=== PATIENT | male | born 2000 | race Caucasian/White ===

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

== ENCOUNTER 2020-03-03 17:05 | Emergency (ER) | payer BC, SELFPAY ==
[2020-03-03 17:10] VITALS: BP 151/87; PULSE 87; RESP 20; TEMP 37.4; O2SAT 98
--- NOTE | 2020-03-03 17:28 | ED.GENADUL_ITS ---
Discharge Plan Disposition Patient Disposition: HOME Condition: Good Discharge Details Clinical Impression: Pain of right forearm Primary Care Provider: Reji Greene ED Provider: Danna Orozco Home Meds and New Rx's Prescriptions: Continued fluticasone propionate [Flonase Allergy Relief] 50 mcg/actuation spray,suspension 1 spray TISH DAILY PRNRF: 0 Discharge Instructions Instructions: Arm Pain (ED) Additional Instructions: Encourage rest, ice, elevation. Tylenol and/or ibuprofen as needed for discomfort. Please continue with brace while pain persists. If you develop i ncreased pain, fever/chills, no change in the skin, or other new/worsening symptoms to seek care urgently once again. Otherwise, please follow-up with primary care in 2 weeks for reevaluation. Referrals: Reji Greene MD [Primary Care Provider] - Discharge Data Discharge Date/Time-TO BE ENTERED AT DEPARTURE: 03/03/20 18:32 Medical Decision Making Patient is a pleasant [id number] 19-year-old male presenting today with chief complaint of right forearm. He states that a week and half ago he tripped and landed on a bump on the ground with his right forearm. Since that time, he has been having pain over the midshaft ulna. No numbness or tingling. Denies other injury at the time of the incident. This has not impeded him from working. He does state that [place] increases discomfort. On exam, I see no evidence of neurological or vascular deficiency. He has good range of motion of his wrist, fingers. Forage motion of the elbow. He does have some discomfort elicited with supination pronation against resistance. Extension of the wrist also causes increased discomfort in the forearm. No pain over the medial or lateral epicondyles. No pain over the olecranon. He is able to extend and flex against resistance. Plan for imaging of the patient self, potential for fracture. FINDINGS: Bones/joints: There is no evidence of acute fracture.There is no evidence of malalignment or dislocation. Soft tissues: Normal. IMPRESSION: There is no evidence of acute fracture.There is no evidence of malalignment or dislocation. 150 findings with the patient. The area of tenderness has been questioning if this could be either contusion versus a tendinitis. I encouraged rest, ice, elevation. Advised Tylenol and/or ibuprofen as needed for discomfort. As the pain is so much and worse with supination, pronation as well as extension of the wrist, and use of the brace of the wrist may help with his discomfort. I advise follow-up with primary care in 2 weeks for reevaluation if pain is not completely subsided. Return precautions were given. All questions and concerns were addressed and he is in agreement with this plan. HPI General Mode of arrival: ambulatory . Date/Time Provider Initiated Documentation: 03/03/20 17:28 . Limitations to Documentation: no limitations . Information obtained by: patient and RN notes reviewed . History of Present Illness 19 year old M presents to the emergency department with the chief complaint of right forearm pain, described as moderate, with intensity rated at 5. Quality is described as aching, and is localized to the right and upper extremity. Patient reports no radiation. Patient started experiencing this week(s) (1.5) and it has been constant. Immobilization improves symptom(s), Movement worsens symptoms . Patient notes no other symptoms.. Patient did receive the following treatments prior to arrival, none Related Data Home Medications Medication Instructions Recorded Confirmed fluticasone propionate [Flonase 1 spray TISH DAILY PRN 03/03/20 03/03/20 Allergy Relief] Allergies Allergy/AdvReac Type Severity Reaction Status Date / Time No Known Allergies Allergy Verified 03/03/20 17:12 General Stated Complaint: Orthopedic MILADYS: 4 Review of Systems Constitutional Constitutional: Reports as per HPI, Denies chills, Denies fever(s), Denies headache(s) and Denies weakness ENT Ears, Nose, Mouth, and Throat: Denies headache(s) Cardiovascular Cardiovascular: Reports as per HPI Respiratory Respiratory: Reports as per HPI and Denies cough Musculoskeletal Musculoskeletal: Reports as per HPI and Denies tingling Integumentary/Breasts Skin/Breast: Reports as per HPI, Denies rash and Denies wounds Neurologic Neurologic: Reports as per HPI, Denies headache(s), Denies tingling, Denies paresthesias and Denies weakness [facility] Medical History Chlamydia contact, treated 04/10/19. 1gm Azithromycin. Surgical History Circumcision Family History Father Asthma Other Diabetes PGM Heart disease maternal, PGM, MGF of CHF Myocardial infarction maternal, PGM, Stroke maternal Asthma PGM Social History Smoking/Tobacco Use Status: Current every day Tobacco Type: smokeless tobacco Second Hand Exposure: No Smoking risk assessment performed?: Yes Alcohol Intake: never Drug use: Never Substance use type: does not use Details: smokeless tobacco 11/19/2019 Household members: family and other Details: DAD AND SIBLINGS Pets and animals: Yes Pets and animals: dog(s) Do you feel safe at home: Yes Do you feel safe in your relationship?: Yes Exam Const General: cooperative, healthy appearing, comfortable, no acute distress, well developed and well groomed Nutritional Appearance: average body habitus and well nourished Orientation: alert and awake Resp Effort & Inspection: normal respiratory effort, able to speak in complete sentences and no respiratory distress Cardio Rate: regular rate Rhythm: regular rhythm Skin General skin exam: no rashes or lesions noted Lesions: no lesions Rashes: no rashes Trauma: no lacerations or abrasions Neuro General: patient alert and patient awake Cognition: normal cognition Speech: speech normal Gait: normal gait Motor: muscle tone normal throughout Sensory Exam: no sensory deficits noted Extrem Elbow/forearm/wrist images: 1. area of tenderness. Patient is full range of motion. Neurovascularly intact. 2+ distal pulses. Point tender over the midshaft ulna. No pain over the lateral epicondyles. He does have pain with both supination and pronation against resistance. Psych Appearance: grossly normal and well kempt Mental Status: mental status grossly normal Speech and Movement: speech and movement normal Course Vital Signs Vital signs: Vital Signs Temperature 37.4 C 03/03/20 17:10 Pulse 87 03/03/20 17:10 Respiratory Rate 20 03/03/20 17:10 Blood Pressure 151/87 H 03/03/20 17:10 Pulse Oximetry 98 03/03/20 17:10 Temperature 37.4 C 03/03/20 17:10 Temperature Source Skin 03/03/20 17:10 Pulse 87 03/03/20 17:10 Respiratory Rate 20 03/03/20 17:10 Respiratory Effort Non-Labored 03/03/20 17:13 Blood Pressure 151/87 H 03/03/20 17:10 Blood Pressure Position Sitting 03/03/20 17:10 Pulse Oximetry 98 03/03/20 17:10 Oxygen Delivery Method Room Air 03/03/20 17:10 Oxygen Flow Rate 0 03/03/20 17:10 Pain Level 5 03/03/20 17:10
--- NOTE | 2020-03-03 17:30 | DI.RAD_ITS ---
EXAM: XR FOREARM RT CLINICAL HISTORY: fall onto midshaft ulna 1wk ago. TECHNIQUE: 2D digital imaging was performed. COMPARISON: No exams were available for comparison FINDINGS: BONES: No acute fracture is present. No bony destructive lesion is seen. Visualized portion of elbow and wrist joints are unremarkable. SOFT TISSUE: Normal. IMPRESSION: Unremarkable radiographs of the left forearm. DATA REPOSITORY: RADIATION DOSE DELIVERED:
--- NOTE | 2020-03-03 18:11 | DI.VRAD_ITS ---
PROCEDURE INFORMATION: Exam: XR Right Forearm Exam date and time: 03/03/2020 5:37 PM Age: 19 years old Clinical indication: Pain; Lower or forearm; Right TECHNIQUE: Imaging protocol: XR Right forearm. Views: 2 views. COMPARISON: No relevant prior studies available. FINDINGS: Bones/joints: There is no evidence of acute fracture.There is no evidence of malalignment or dislocation. Soft tissues: Normal. IMPRESSION: There is no evidence of acute fracture.There is no evidence of malalignment or dislocation. Dictated and Authenticated by: Joan Paez MD. Ordering:AILYN Clay MD
== END 2020-03-03 18:32 | disposition home or self-care (01) ==
PROVIDERS: Emergency Provider Physician Assistant; PCP Pediatrics
DX: M79.631 Pain in right forearm (principal); W19.XXXA Unspecified fall, initial encounter
CPT/HCPCS: 99283; 73090; 99284

== ENCOUNTER 2020-03-19 18:43 | Outpatient (CLI) | payer BC, SELFPAY ==
--- NOTE | 2020-03-19 14:00 | DI.CT_ITS ---
EXAM: CT ORBITS WO CLINICAL HISTORY: FOREIGN BODY UNDER EYELID,H02.819. TECHNIQUE: Imaging Protocol: Axial computed tomography images with coronal and sagittal reformatted images were created and reviewed CONTRAST MATERIAL: Noncontrast COMPARISON: No exams were available for comparison FINDINGS: Globes: The anterior and posterior chambers are intact. Optic Nerves: Normal. Extraocular muscles: Normal. Retrobulbar fat: Normal. Orbital astorga: No definite fracture is noted. Sinuses: Mild mucosal thickening of maxillary sinuses. Mucosal thickening and opacification of multi ple ethmoid sinuses. Mastoid air cells clear. Soft Tissues: Normal. No foreign body is identified. The visualized portions of the brain are unrem arkable. IMPRESSION: Normal CT scan of the orbits. Incidental chronic sinus disease. RADIATION DOSE DELIVERED: 260.69mGy.cm Total DLP DATA REPOSITORY: All CT scans at this facility are submitted to the National Radiology Data Registry (NRDR) Dose Index Registry (DIR) with the [employer] (ACR). RADIATION OPTIMIZATION: All CT scans at this facility use at least one of these dose optimization te chniques: automated exposure control; mA and/or kV adjustment per patient size (includes targeted exa ms where dose is matched to clinical indication); or iterative reconstruction.
== END 2020-03-19 19:03 ==
PROVIDERS: PCP Pediatrics; Visit Provider Family Medicine
DX: H02.819 Retained foreign body in unspecified eye, unspecified eyelid (principal)
CPT/HCPCS: 70480

== ENCOUNTER 2020-03-27 07:24 | Emergency (ER) | payer BC, SELFPAY ==
[2020-03-27 07:28] VITALS: BP 126/79; PULSE 92; TEMP 36.7; O2SAT 99
--- NOTE | 2020-03-27 07:34 | W.ED.GENAD ---
Discharge Plan Disposition Patient Disposition: HOME Condition: Good Discharge Details Clinical Impression: Cellulitis of left lower leg Primary Care Provider: Reji Greene ED Provider: Provider,Temporary Home Meds and New Rx's Prescriptions: New clindamycin HCl 150 mg capsule 450 mg PO TID 7 Days Qty: 63 RF: 0 Continued fluticasone propionate [Flonase Allergy Relief] 50 mcg/actuation spray,suspension 1 spray TISH DAILY PRNRF: 0 Discharge Instructions Instructions: Cellulitis (ED) Additional Instructions: At this time you have a bacterial infection of your skin behind your left knee. Currently there is no abscess, however if you notice increased swelling, redness, or pain this may indicate an abscess. If this is noted please return immediately for reassessment as you may need to have this drained. Please take the antibiotic as directed, make sure you are taking it with a yogurt with live culture like activia to prevent any diarrhea. If you notice any worsening of your symptoms, or any new symptoms such as vomiting, diarrhea, fever, chills, shortness of breath, chest pain, numbness, weakness, or fainting , please return immediately to the emergency department for reevaluation. Please follow up with your primary care provider as soon as possible for reassessment and reevaluation. As always, it was a pleasure participating in your medical care today. Stand Alone Forms: Work Release Referrals: Reji Greene MD [Primary Care Provider] - Medical Decision Making 19-year-old male presents with pain behind his left knee for the last 2 to 3 days. He noticed a small lesion there there so ago, it is gotten slightly more swollen, red and painful over the last 24 to 48 hours. He does note that the lesion was draining earlier. He denies any IV or illicit drug use, trauma, interaction with a significant amount of jacquie to suggest anthrax encounter. He denies any systemic symptoms of fever or chills. He denies any issues like this in the past. No pain in the bony joint of the knee itself. No other complaints this time. Physical exam demonstrates a small cellulitic lesion in the posterior left knee superficially on the skin, it is mildly firm and indurated with mild erythema and warmth, no circumferential spreading of the redness, area is notably localized to an area of 1 x 3 cm. No active draining, bedside ultrasound shows no fluid collection that can be drained. There is no pain with movement of the knee joint itself, he has no IV or illicit drug use history, no clinical evidence at this time of a septic joint or an infected joint for that matter. No calf tenderness. No systemic symptoms. Patient will be given clindamycin, recommendations for yogurt with live culture to prevent diarrhea, discussed red flags which to return, including clinical evidence that would represent an abscess that needs drainage if this occurs later. I have extensively reviewed the treatment plan and discharge instructions with the patient. I have addressed all patient concerns at this time. The patient was made aware of what symptoms to monitor for that would warrant a return to the emergency department. Discussed the plan with the patient, they demonstrate verbal understanding and agreement with our assessment and plan at this time. The documentation in this chart was dictated using [employer] dictation software. Please excuse any dictation errors. HPI General Date/Time Provider Initiated Documentation: 03/27/20 07:27. HPI Narrative: 19-year-old male presents with pain behind his left knee for the last 2 to 3 days. He noticed a small lesion there there so ago, it is gotten slightly more swollen, red and painful over the last 24 to 48 hours. He does note that the lesion was draining earlier. He denies any IV or illicit drug use, trauma, interaction with a significant amount of jacquie to suggest anthrax encounter. He denies any systemic symptoms of fever or chills. He denies any issues like this in the past. No pain in the bony joint of the knee itself. No other complaints this time. Related Data Home Medications Medication Instructions Recorded Confirmed fluticasone propionate [Flonase 1 spray TISH DAILY PRN 03/03/20 03/27/20 Allergy Relief] clindamycin HCl 450 mg PO TID 7 Days #63 cap 03/27/20 Previous Rx's Medication Instructions Recorded clindamycin HCl 450 mg PO TID 7 Days #63 cap 03/27/20 Allergies Allergy/AdvReac Type Severity Reaction Status Date / Time No Known Allergies Allergy Verified 03/27/20 07:37 General Stated Complaint: Cellulitis MILADYS: 4 Review of Systems All systems reviewed & are unremarkable except as noted in HPI and below [facility] Medical History Chlamydia contact, treated 2/18/20. 1gm Azithromycin. Surgical History Circumcision Family History Father Asthma Other Diabetes PGM Heart disease maternal, PGM, MGF of CHF Myocardial infarction maternal, PGM, Stroke maternal Asthma PGM Social History Smoking/Tobacco Use Status: Current every day Tobacco Type: smokeless tobacco Second Hand Exposure: No Smoking risk assessment performed?: Yes Alcohol Intake: never Drug use: Never Substance use type: does not use Details: smokeless tobacco 11/19/2019 Household members: family and other Details: DAD AND SIBLINGS Pets and animals: Yes Pets and animals: dog(s) Do you feel safe at home: Yes Do you feel safe in your relationship?: Yes Exam Narrative Exam Narrative: 1.Const: Well-nourished, Well-developed, appearing stated age 2.Eyes: PERRL, no conjunctival injection, and symmetrical lids. 3.ENT: Atraumatic external nose and ears. Moist MM. Neck: Symmetric, trachea midline, No thyromegaly. 4.CVS: +S1/S2, No murmurs or gallops. Peripheral pulses 2+ and equal in all extremities. Brisk capillary refill in all extremities. 5.RESP: Unlabored respiratory effort. Clear to auscultation bilaterally. No wheezes rales or rhonchi 6.GI: Soft, Nontender/Nondistended, No hepatosplenomegaly. No guarding or rebound. 7.MSK: Normocephalic/Atraumatic, Extremities w/o deformity or ttp No cyanosis or clubbing, Normal movement of all extremities. Patient is able to move the knee without any difficulty. No indication of a septic joint. No calf tenderness. 8.Skin: Warm, Dry. Left posterior knee demonstrates a 2 cm x 1 cm erythematous lesion that is mildly firm and indurated, also warm, but no fluctuance. There appears to be an eschar on it from where perhaps the head was previously scraped/deroofed, with some previous drainage but no drainage now. Bedside ultrasound shows no evidence of significant fluid collection requiring draining. No pain in the knee itself, no circumferential redness. No significant calf tenderness. No evidence of significant spreading of cellulitis. 9.Neuro: potato inspector II-XII grossly intact. Sensation grossly intact, no focal neurologic deficits. 10.Psych: (AAO) x3. Appropriate mood and affect Course Vital Signs Vital signs: Vital Signs Temperature 36.7 C 03/27/20 07:28 Pulse 92 H 03/27/20 07:28 Blood Pressure 126/79 03/27/20 07:28 Pulse Oximetry 99 03/27/20 07:28 Temperature 36.7 C 03/27/20 07:28 Temperature Source Temporal Artery Scan 03/27/20 07:28 Pulse 92 H 03/27/20 07:28 Respiratory Effort Non-Labored 03/27/20 07:32 Blood Pressure 126/79 03/27/20 07:28 Blood Pressure Position Sitting 03/27/20 07:28 Pulse Oximetry 99 03/27/20 07:28 Oxygen Delivery Method Room Air 03/27/20 07:28 Oxygen Flow Rate 0 03/27/20 07:28 Pain Level 7 03/27/20 07:28
== END 2020-03-27 07:42 | disposition home or self-care (01) ==
PROVIDERS: Emergency Provider Student in an Organized Health Care Education/Training Program; PCP Pediatrics
DX: L03.116 Cellulitis of left lower limb (principal)
CPT/HCPCS: 99283

== ENCOUNTER 2020-03-29 11:24 | Emergency (ER) | payer BC, SELFPAY ==
[2020-03-29 11:30] VITALS: BP 121/83; PULSE 92; RESP 16; TEMP 36.8; O2SAT 99
--- NOTE | 2020-03-29 12:08 | ED.GENADUL_ITS ---
Discharge Plan Disposition Patient Disposition: HOME Discharge Details Clinical Impression: Abscess of left leg Primary Care Provider: Reji Greene ED Provider: Patricia Hodgson Home Meds and New Rx's Prescriptions: New clindamycin HCl 150 mg capsule 450 mg PO TID 3 Days Qty: 27 RF: 0 No Action fluticasone propionate [Flonase Allergy Relief] 50 mcg/actuation spray,suspension 1 spray TISH DAILY PRNRF: 0 clindamycin HCl 150 mg capsule 450 mg PO TID 7 Days Qty: 63 RF: 0 Discharge Instructions Instructions: Abscess (ED) Additional Instructions: Warm compresses Take antibiotic for 10 days Pressure dressing to area You may remove the wick in 3 days, if it falls off prior to that do not be alarmed, continue to apply warm compresses Please return with spreading redness, fever, worsening pain Stay off the affected leg as much as you can, the more you use it for longer I will take he will Recheck in 48 hours Stand Alone Forms: Work Release Discharge Data Discharge Date/Time-TO BE ENTERED AT DEPARTURE: 03/29/20 12:34 Medical Decision Making Patient tolerated I&D without difficulty, given complexity of the popliteal space, I performed a superficial incision and drainage with good effect Wound was superficially packed and irrigated copiously He will continue the clindamycin, candidate for 3 additional days to make a total of 10 days He will need recheck in 48 hours and wick removal in 48 to 72 hours Apply warm compresses and return earlier should he have new or worsening complaints He is afebrile and nontoxic at time of discharge home Differential Diagnosis Differential Diagnosis: DVT, abscess, cellulitis, lymphangitis Medical Records Medical records reviewed: Yes I reviewed the patient's medical records. Medical records narrative: I reviewed his visit from 4 days prior and patient is currently taking clindamycin was treated for cellulitis HPI This 19-year-old male presents for recurrent pain and drainage from an abscess on his left posterior knee. He states that he presents today secondary to worsening pain. He denies any fever or chills. He denies any chest pain or shortness of breath. He denies dizziness or weakness. He states the drainage started yesterday evening. He has been taking the antibiotic as prescribed General Date/Time Provider Initiated Documentation: 03/29/20 11:41 . Related Data Home Medications Medication Instructions Recorded Confirmed fluticasone propionate [Flonase 1 spray TISH DAILY PRN 03/03/20 03/29/20 Allergy Relief] clindamycin HCl 450 mg PO TID 7 Days #63 cap 03/27/20 03/29/20 clindamycin HCl 450 mg PO TID 3 Days #27 cap 03/29/20 Previous Rx's Medication Instructions Recorded clindamycin HCl 450 mg PO TID 7 Days #63 cap 03/27/20 clindamycin HCl 450 mg PO TID 3 Days #27 cap 03/29/20 Allergies Allergy/AdvReac Type Severity Reaction Status Date / Time No Known Allergies Allergy Verified 03/29/20 11:37 General Stated Complaint: Cellulitis MILADYS: 3 Review of Systems Narrative: Review of systems negative x3 aside from indication HPI, specifically new fever or chills, calf pain, vomiting PFSH Medical History Chlamydia contact, treated 04/10/19. 1gm Azithromycin. Surgical History Circumcision Family History Father Asthma Other Diabetes PGM Heart disease maternal, PGM, MGF of CHF Myocardial infarction maternal, PGM, Stroke maternal Asthma PGM Social History Smoking/Tobacco Use Status: Current every day Tobacco Type: smokeless tobacco Second Hand Exposure: No Smoking risk assessment performed?: Yes Alcohol Intake: never Drug use: Never Substance use type: does not use Details: smokeless tobacco 11/19/2019 Household members: family and other Details: DAD AND SIBLINGS Pets and animals: Yes Pets and animals: dog(s) Do you feel safe at home: Yes Do you feel safe in your relationship?: Yes Exam Const General: cooperative and healthy appearing Cardio Other: Distal pulses intact Skin Full body images: 1. Popliteal abscess noted, purulent drainage, 4 inch region of surrounding cellulitis, no calf tenderness or swelling, no lymphangitis Course Vital Signs Vital signs: Vital Signs Temperature 36.8 C 03/29/20 11:30 Pulse 92 H 03/29/20 11:30 Respiratory Rate 16 03/29/20 11:30 Blood Pressure 121/83 03/29/20 11:30 Pulse Oximetry 99 03/29/20 11:30 Temperature 36.8 C 03/29/20 11:30 Temperature Source Oral 03/29/20 11:30 Pulse 92 H 03/29/20 11:30 Respiratory Rate 16 03/29/20 11:30 Respiratory Effort Non-Labored 03/29/20 11:36 Blood Pressure 121/83 03/29/20 11:30 Blood Pressure Position Sitting 03/29/20 11:30 Pulse Oximetry 99 03/29/20 11:30 Oxygen Delivery Method Room Air 03/29/20 11:30 Oxygen Flow Rate 0 03/29/20 11:30 Pain Level 7 03/29/20 11:30 Procedures Abscess I/D Site: Lower Extremity (Left popliteal) Side (if applicable): Left Local Anesthetic: Lidocaine 1% Amount of anesthesia used (mL): 3 Technique: Incised with #11 Blade Amount of fluid expressed (mL): 5 Irrigation: Yes Packing used?: Iodoform Complications: Pain
== END 2020-03-29 12:34 | disposition home or self-care (01) ==
LOC: ER 12:43
PROVIDERS: Emergency Provider Physician Assistant; PCP Pediatrics
DX: L02.416 Cutaneous abscess of left lower limb (principal); L03.116 Cellulitis of left lower limb
CPT/HCPCS: 10061

== ENCOUNTER 2020-11-17 14:18 | Emergency (ER) | payer OTHER, SELFPAY ==
--- NOTE | 2020-11-17 14:45 | DI.RAD_ITS ---
Exam(s) XR FOOT RT COMPLETE EXAM: XR FOOT RT COMPLETE CLINICAL HISTORY: trauma, stepped on nail. TECHNIQUE: 2D digital imaging was performed. COMPARISON: No exams were available for comparison FINDINGS: There is no evidence of fracture or diastasis of the Lisfranc joint. Small benign bone island is not ed in the posterior half of the calcaneus. Bipartite medial sesamoid noted subjacent to the great to e metatarsal head. IMPRESSION: No acute fracture evident. DATA REPOSITORY: RADIATION DOSE DELIVERED:
[2020-11-17 14:52] VITALS: BP 149/85; PULSE 114; RESP 14; TEMP 36.7; O2SAT 99
[2020-11-17] MEDS: levoFLOXacin 500 MG TAB PO (16:35)
[2020-11-17 16:36] VITALS: BP 131/78; PULSE 82; RESP 18; O2SAT 100
--- NOTE | 2020-11-22 09:37 | ED.GENADUL_ITS ---
Discharge Plan Disposition Patient Disposition: HOME Condition: Stable Discharge Details Clinical Impression: Puncture wound of foot Primary Care Provider: Reji Greene ED Provider: Olivia Almonte Home Meds and New Rx's Prescriptions: New levofloxacin 500 mg tablet 500 mg PO DAILY Qty: 6 RF: 0 Continued fluticasone propionate [Flonase Allergy Relief] 50 mcg/actuation spray,suspension 1 spray TISH DAILY PRNRF: 0 Discharge Instructions Instructions: Levofloxacin (By mouth), Puncture Wound (ED) Additional Instructions: Please return immediately to the emergency department if you develop any new or worsening symptoms, if your condition does not improve as expected, or if you become otherwise concerned. It is extremely important that you call soon as possible to make an appointment to be seen in follow-up for this visit by your primary care doctor. Referrals: Reji Greene MD [Primary Care Provider] - Discharge Data Discharge Date/Time-TO BE ENTERED AT DEPARTURE: 11/17/20 16:39 Medical Decision Making Devan Montoya is a 20 y/o man who presented to the emergency department after stepping on nail through his shoe. On exam there is a small puncture wound to the plantar midfoot, no wound to the dorsal foot, no TTP. No bleeding. Concern for possible retained FB, less likely bony injury. Will need ppx antibiotics. Exam/hx not c/w significant injury other than puncture to right foot. Plan for tetanus update, xrays. xrays negative. Rx for levaquin for pseudomonal coverage given puncture through shoe. I had a lengthy discussion with Patient regarding return to emergency department precautions, home care, and importance of outpatient follow-up. Pt verbalizes understanding of the plan and is amenable. Patient discharged to home with clear plan for outpatient follow-up. All questions were answered. Disposition decision was made weighing the risks and benefits of hospitalization versus outpatient treatment, the risk for further decompensation, and the patient's wishes. Medical Records Medical records reviewed: Yes I reviewed the patient's medical records. Imaging Data Radiologic Study: Attestation: I personally reviewed and interpreted this imaging study as follows: Radiologist's impression: EXAM: XR FOOT RT COMPLETE CLINICAL HISTORY: trauma, stepped on nail. TECHNIQUE: 2D digital imaging was performed. COMPARISON: No exams were available for comparison FINDINGS: There is no evidence of fracture or diastasis of the Lisfranc joint. Small benign bone island is noted in the posterior half of the calcaneus. Bipartite medial sesamoid noted subjacent to the great toe metatarsal head. IMPRESSION: No acute fracture evident. HPI General Mode of arrival: ambulatory . Date/Time Provider Initiated Documentation: 11/17/20 14:39 . Limitations to Documentation: no limitations . Information obtained by: patient, RN notes reviewed and old records reviewed . HPI Narrative: Devan Montoya is a 20 y/o man without reported h/o major medical problems presenting to the emergency department with puncture wound to right foot. Pt reports that [employer] he was at work when he stepped on to a board that a nail projecting upwards. Pt reports that nail went through his boot into his foot, and felt that it went pretty deep. Pt reports that he has been walking since the injury and weightbearing on the right foot, but states it is somewhat painful. He denies any other injury or pain. Denies any prior symptoms. No fever, cough, SOB, vomiting, diarrhea, rash, numbness, weakness. Pt reports that he feels otherwise well and in his usual state of health. Reports last tetanus shot was in 2012. Related Data Home Medications Medication Instructions Recorded Confirmed fluticasone propionate [Flonase 1 spray TISH DAILY PRN 03/03/20 11/17/20 Allergy Relief] levofloxacin 500 mg PO DAILY #6 tab 11/17/20 Previous Rx's Medication Instructions Recorded levofloxacin 500 mg PO DAILY #6 tab 11/17/20 Allergies Allergy/AdvReac Type Severity Reaction Status Date / Time No Known Allergies Allergy Verified 11/17/20 14:58 General Stated Complaint: Laceration MILADYS: 3 Review of Systems Narrative: Constitutional: denies fevers Eyes: denies eye pain ENT: denies ear pain, dental pain, sore throat Cardiovascular: denies chest pain Respiratory: denies SOB, cough GI: denies abdominal pain, vomiting, diarrhea : denies flank pain MSK: denies back pain, neck pain, arthralgias, reports foot pain at site of puncture Skin: denies rash Neuro: denies headaches, numbness, weakness [facility] Medical History Chlamydia contact, treated 04/10/19. 1gm Azithromycin. Surgical History Circumcision Family History Father Asthma Other Diabetes PGM Heart disease maternal, PGM, MGF of CHF Myocardial infarction maternal, PGM, Stroke maternal Asthma PGM Social History Smoking/Tobacco Use Status: Current every day Tobacco Type: smokeless tobacco Second Hand Exposure: No Smoking risk assessment performed?: Yes Alcohol Intake: never Drug use: Never Substance use type: does not use Details: smokeless tobacco 11/19/2019 Household members: family and other Details: DAD AND SIBLINGS Pets and animals: Yes Pets and animals: dog(s) Do you feel safe at home: Yes Do you feel safe in your relationship?: Yes Exam Narrative Exam Narrative: Constitutional: well and [id number], pleasant, conversing normally HENT: head atraumatic/normocephalic/normal inspection, mucous membranes moist Eyes: conjunctiva normal, sclera normal, pupils 3mm b/l Neck: no stridor, normal ROM, trachea midline Chest: normal inspection Resp: normal work of breathing, speaking in full sentences Cardio: normal rate, normal rhythm Skin: warm, dry, normal color, no rash Neuro: alert, not altered, grossly non-focal, normal tone Ext: 4mm puncture wound right plantar midfoot, no bleeding, no edema, no ecchymosis, no TTP of the heel, plantar, or dorsal foot. FROM right ankle, toes. DP pulse intact. Sensation distal foot intact. Psych: normal mood, normal affect, normal behavior Course Vital Signs Vital signs: Vital Signs Temperature 36.7 C 11/17/20 14:52 Pulse 114 H 11/17/20 14:52 Respiratory Rate 14 11/17/20 14:52 Blood Pressure 149/85 H 11/17/20 14:52 Pulse Oximetry 99 11/17/20 14:52 Temperature 36.7 C 11/17/20 14:52 Temperature Source Skin 11/17/20 14:52 Pulse 82 11/17/20 16:36 Respiratory Rate 18 11/17/20 16:36 Respiratory Effort 11/17/20 14:58 Blood Pressure 131/78 11/17/20 16:36 Blood Pressure Position Sitting 11/17/20 14:52 Pulse Oximetry 100 11/17/20 16:36 Oxygen Delivery Method Room Air 11/17/20 14:52 Oxygen Flow Rate 0 11/17/20 14:52 Pain Level 1 11/17/20 16:36 Comment 11/17/20 14:52
== END 2020-11-17 16:39 | disposition home or self-care (01) ==
PROVIDERS: Emergency Provider Student in an Organized Health Care Education/Training Program; PCP Pediatrics
DX: S91.331A Puncture wound without foreign body, right foot, initial encounter (principal); W45.0XXA Nail entering through skin, initial encounter; Y99.0 Civilian activity done for income or pay
CPT/HCPCS: 99283; 73630

== ENCOUNTER 2021-05-14 21:25 | Emergency (ER) | payer SELFPAY ==
[2021-05-14 21:28] VITALS: BP 137/89; PULSE 90; RESP 18; TEMP 36.5; O2SAT 100
--- NOTE | 2021-05-14 21:30 | DI.RAD_ITS ---
Exam(s) XR CHEST 2V PA LATERAL EXAM: XR CHEST 2V PA LATERAL CLINICAL HISTORY: L posterior pain TECHNIQUE: 2D digital imaging was performed of the chest. Two images were obtained. PA and lateral views were obtained. COMPARISON: No exams were available for comparison FINDINGS: MEDIASTINUM: Normal. HEART: Normal. PULMONARY VASCULATURE: Normal. LUNGS: Clear. PLEURAL SPACE: No pleural effusion or pneumothorax. BONE:Within normal limits for the patient's age. OTHER FINDINGS:Normal. IMPRESSION: No acute pulmonary findings. DATA REPOSITORY: RADIATION DOSE DELIVERED:
--- NOTE | 2021-05-14 21:45 | ED.GENADUL_ITS ---
Discharge Plan Disposition Patient Disposition: HOME Condition: Improving Discharge Details Clinical Impression: Spasm of thoracic back muscle Primary Care Provider: Unknown,Unknown ED Provider: Cayetano Olguin Home Meds and New Rx's Prescriptions: New methocarbamol 500 mg tablet 500 - 1,000 mg PO Q6H PRN (Reason: Back pain or spasm) Qty: 20 0RF Continued fluticasone propionate [Flonase Allergy Relief] 50 mcg/actuation spray,suspension 1 spray TISH DAILY PRN0RF Rx Instructions: administer into each nostril Discontinued levofloxacin 500 mg tablet 500 mg PO DAILY Qty: 6 0RF Rx Instructions: Please begin taking 11/18/20 Discharge Instructions Instructions: Muscle Spasm (ED) Additional Instructions: May remove Lidoderm patch in 12 hours time. Further patches are available [id number]. Methocarbamol as needed for muscular pain and spasm. Small, frequent fluids so that you are liberally hydrated. May gently foam roll over area/gentle massage. Tylenol and/or ibuprofen as needed for pain. 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 He was lifting and flipping over a large piece of metal when he felt a sudden pain in his left back inferior to the shoulder blade. It was const, nonradiating, worse with movement and deep breath. Did not feel shortness of breath and denies chest pain. On exam the patient's vital signs are normal, he has reproducible muscular pain in the left paraspinous musculature. Most consistent with muscular strain and spasm. Patient referred for chest x-ray to rule out pneumothorax or intrathoracic pathology. Chest HPI General Mode of arrival: ambulatory . Date/Time Provider Initiated Documentation: 05/14/21 21:26 . Limitations to Documentation: no limitations . Information obtained by: patient and family . History of Present Illness 20 year old M presents to the emergency department with the chief complaint of Left posterior back pain after lifting, described as moderate, Quality is described as dull, and is localized to the back and left. Patient reports no radiation. Patient started experiencing this minute(s) and it has been constant. improves with Rest improves symptom(s), Movement worsens symptoms . Patient notes denies chest pain, fever/chills, shortness of breath, syncope and weakness. Patient did receive the following treatments prior to arrival, none Related Data Home Medications Medication Instructions Recorded Confirmed fluticasone propionate 50 1 spray TISH DAILY PRN 03/03/20 11/17/20 mcg/actuation nasal spray,suspension (Flonase Allergy Relief) methocarbamol 500 mg tablet 500 - 1,000 mg PO Q6H PRN #20 tab 05/14/21 Previous Rx's Medication Instructions Recorded methocarbamol 500 mg tablet 500 - 1,000 mg PO Q6H PRN #20 tab 05/14/21 Allergies Allergy/AdvReac Type Severity Reaction Status Date / Time No Known Allergies Allergy Verified 11/17/20 14:58 General Stated Complaint: Orthopedic MILADYS: 4 Review of Systems Narrative: No difficulty breathing. No traumatic fall or injury. Recently well. 6 systems were reviewed and otherwise negative PFSH All Active Problems (Updated 05/14/21 @ 21:48 by Cayetano Olguin MD) Puncture wound of foot (Acute) Spasm of thoracic back muscle (Acute) Esophagitis (Acute) Dysphagia (Acute) Chlamydia contact, treated (Acute) 04/10/19. 1gm Azithromycin. BMI (body mass index), pediatric, 5% to less than 85% for age (Acute 02/04/14) Routine child health exam (Acute 05/03/12) 03/2014 cardio eval due to family hx with normal EKG and ECHO, no restrictions and no further cardiac needed Right groin pain (Acute) Follow up as needed Surgical History Circumcision Family History Father Asthma Other Diabetes PGM Heart disease maternal, PGM, MGF of CHF Myocardial infarction maternal, PGM, Stroke maternal Asthma PGM Social History Smoking/Tobacco Use Status: Current every day Tobacco Type: smokeless tobacco Second Hand Exposure: No Smoking risk assessment performed?: Yes Alcohol Intake: never Drug use: Never Substance use type: does not use Details: smokeless tobacco 11/19/2019 Household members: family and other Details: DAD AND SIBLINGS Pets and animals: Yes Pets and animals: dog(s) Do you feel safe at home: Yes Do you feel safe in your relationship?: Yes Exam Narrative Exam Narrative: GEN: awake, alert, oriented 3. Pleasant, well groomed, interactive. HEAD: Normocephalic, atraumatic ENT: Mucous membranes moist, oropharynx unremarkable, External ear exam unremarkable EYES: PERRL, EOMI NECK: Full ROM, no SHIVA, no menigismus CHEST/RESP: Left posterior chest is tender from the medial border of the scapula to the paraspinous musculature. Pain is reproducible. No midline tenderness, step-off or deformity, no rash clear to auscultation bilateral, no wheeze/rhonchi/rales CARDIOVASCULAR: RRR, no murmur, rub livia. 2+ Rad pulse bilateral ABDOMEN: Soft, nontender, no mass. +Bowel sounds EXT: Full ROM, no edema, no rash Neuro: Grossly normal neurologic exam, conversant, interactive. Psych: Speech fluent, thoughts congruent, affect normal Course Vital Signs Vital signs: Vital Signs Temperature 36.5 C 05/14/21 21:28 Pulse 90 05/14/21 21:28 Respiratory Rate 18 05/14/21 21:28 Blood Pressure 137/89 05/14/21 21:28 Pulse Oximetry 100 05/14/21 21:28 Temperature 36.5 C 05/14/21 21:28 Temperature Source Tympanic 05/14/21 21:28 Pulse 90 05/14/21 21:28 Respiratory Rate 18 05/14/21 21:28 Respiratory Effort 05/14/21 21:31 Blood Pressure 137/89 05/14/21 21:28 Blood Pressure Position Supine 05/14/21 21:28 Pulse Oximetry 100 05/14/21 21:28 Oxygen Delivery Method Room Air 05/14/21 21:28 Oxygen Flow Rate 0 05/14/21 21:28 Pain Level 7 05/14/21 21:28
[2021-05-14] MEDS: Ibuprofen 800 MG TAB PO (22:00)
[2021-05-14] MEDS: Lidocaine 5% Patch 1 PATCH TP (22:00)
[2021-05-14] MEDS: Methocarbamol 500 MG TAB 1000 MG PO (22:00)
--- NOTE | 2021-05-14 22:25 | DI.VRAD_ITS ---
PROCEDURE INFORMATION: Exam: XR Chest Exam date and time: 05/14/2021 21:48 Age: 20 years old Clinical indication: Chest wall pain; Additional info: Left posterior chest pain TECHNIQUE: Imaging protocol: XR of the chest. Views: 2 views. COMPARISON: No relevant prior studies available. FINDINGS: Lungs: No consolidation. Pleural spaces: No pleural effusion. No pneumothorax. Heart/Mediastinum: No cardiomegaly. Bones/joints: No acute fracture. IMPRESSION: Normal. Dictated and Authenticated by: Vale Montano MD. Ordering:LIZ Monteiro MD
== END 2021-05-14 22:02 | disposition home or self-care (01) ==
LOC: ER 21:51
PROVIDERS: Emergency Provider Emergency Medicine
DX: M62.830 Muscle spasm of back (principal)
CPT/HCPCS: 99283; 71046

== ENCOUNTER 2021-05-20 10:20 | Emergency (ER) | payer BC, SELFPAY ==
[2021-05-20 10:37] VITALS: BP 143/75; PULSE 90; RESP 18; TEMP 36.6; O2SAT 97
--- NOTE | 2021-05-20 11:26 | ED.GENADUL_ITS ---
Discharge Plan Disposition Patient Disposition: HOME Condition: Stable Discharge Details Clinical Impression: Acute thoracic myofascial strain Primary Care Provider: Unknown,Unknown ED Provider: Evie Loyd Home Meds and New Rx's Prescriptions: New prednisone 20 mg tablet 40 mg PO DAILY 3 Days Qty: 6 0RF Continued fluticasone propionate [Flonase Allergy Relief] 50 mcg/actuation spray ,suspension 1 spray TISH DAILY PRN0RF Rx Instructions: administer into each nostril ibuprofen 600 mg Tablet 600 mg PO Q8H 0RF Discharge Instructions Instructions: Thoracic Back Strain (ED) Additional Instructions: Alternate ice and heat to the affected area(s) several times daily for 20 minutes at a time. Be sure to use a massage or tennis ball to the affected area to place between your body and a wall to massage the area as discussed in the emergency dep artment. You can do this several times daily. Continue to take your methocarbamol as needed and directed Continue to take 500 mg of Tylenol every 4 hours and 600 mg of ibuprofen every 6 hours as needed and directed for pain. You were given a prescription for steroids to take as directed until finished. Do not take your next dose of steroids until tomorrow. Follow-up with your primary care doctor in 1 week. Return to the emergency department with any worsening or new concerning symptoms. Discharge Data Discharge Physician: Evie Loyd Medical Decision Making 20-year-old male presents with left lateral lower back pain sustained after rolling a heavy material at work. Was seen here on 05/14 for same complaint and had negative chest x-ray and was given methocarbamol. Now presents with persistent pain now radiating to the left lateral neck and left posterior shoulder. Denies any new injury. Denies any numbness or weakness. Vitals within normal limits. Patient appears comfortable and nontoxic. He has a localized area of tenderness to the left lateral inferior back as well as in addition to the left lateral thoracic paraspinal region, left lateral neck and left posterior shoulder. There is no evidence of orthopedic deformity. There is no evidence of trauma, cellulitis or rash. The pain is reproducible with head movement. He has no focal deficits and is neurovascularly intact. Appears most likely consistent with a localized thoracic muscle wall strain. Suspect to be pain radiating to his neck and shoulder is now referred pain due to worsening spasm. Do not feel indication for repeat imaging and patient is agreeable. Discussed with patient that he will most likely benefit from localized concentrated massage to the area. Will treat with a short course of steroids. He was advised to alternate ice and heat, continue alternating tylenol and ibuprofen. Advised to limit heavy lifting. Advised to follow up with the primary care doctor for re-evaluation. Usual and customary return precautions given prior to discharge. Medical Records Medical records reviewed: Yes I reviewed the patient's medical records. Medical records narrative: 05/14/21 XR CHEST 2V PA ? LATERAL CLINICAL HISTORY:? L posterior pain TECHNIQUE:? 2D digital imaging was performed of the chest.? Two images were obtained.? PA and lateral views were obtained. COMPARISON:? No exams were available for comparison FINDINGS: MEDIASTINUM: Normal.? HEART: Normal. PULMONARY VASCULATURE: Normal. LUNGS: Clear. ? PLEURAL SPACE: No pleural effusion or pneumothorax. BONE:Within normal limits for the patient's age.? OTHER FINDINGS:Normal.? IMPRESSION: No acute pulmonary findings. HPI General Date/Time Provider Initiated Documentation: 05/20/21 10:49 . Limitations to Documentation: no limitations . Information obtained by: patient . 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 Patient was seen in the ED 5 days ago for this complaint initially. He states he was rolling heavy material with his arms and felt a sudden onset of pain in his left lateral lower back. He states he obtained an x-ray which was negative and was given methocarbamol. He states since then the pain has worsened that he has progression of pain up to the left side of his neck and left posterior shoulder. He states the pain is worse with movement of his head and upper body. He denies any arm pain, weakness, numbness, chest pain, difficulty breathing and states he has been eating and drinking normally. He denies any relief with the methocarbamol or ibuprofen. Related Data Home Medications Medication Instructions Recorded Confirmed fluticasone propionate 50 1 spray TISH DAILY PRN 03/03/20 05/20/21 mcg/actuation nasal spray,suspension (Flonase Allergy Relief) ibuprofen 600 mg tablet 600 mg PO Q8H 05/20/21 05/20/21 prednisone 20 mg tablet 40 mg PO DAILY 3 Days #6 tab 05/20/21 Previous Rx's Medication Instructions Recorded prednisone 20 mg tablet 40 mg PO DAILY 3 Days #6 tab 05/20/21 Allergies Allergy/AdvReac Type Severity Reaction Status Date / Time No Known Allergies Allergy Verified 05/20/21 10:40 General Stated Complaint: Orthopedic MILADYS: 4 Review of Systems All systems reviewed & are unremarkable except as noted in HPI and below Constitutional Constitutional: Reports as per HPI, Denies chills and Denies fever(s) Eyes Eyes: Denies blurry vision ENT Ears, Nose, Mouth, and Throat: Denies dizziness, Reports neck pain, Denies sore throat and Denies throat swelling Cardiovascular Cardiovascular: Denies chest pain and Denies dyspnea Respiratory Respiratory: Denies cough and Denies dyspnea Gastrointestinal Gastrointestinal: Denies abdominal pain, Denies diarrhea and Denies vomiting Genitourinary Genitourinary: Denies hematuria and Denies dysuria Musculoskeletal Musculoskeletal: Reports back pain, Reports neck pain and Denies numbness Integumentary/Breasts Skin/Breast: Denies lesions and Denies rash Neurologic Neurologic: Denies dizziness, Denies localized weakness and Denies numbness Allergic/Immunologic Allergic/Immunologic: Denies throat swelling PFSH All Active Problems (Updated 05/20/21 @ 11:28 by Evie Loyd DO) Puncture wound of foot (Acute) Spasm of thoracic back muscle (Acute) Acute thoracic myofascial strain (Acute) Esophagitis (Acute) Dysphagia (Acute) Chlamydia contact, treated (Acute) 04/10/19. 1gm Azithromycin. BMI (body mass index), pediatric, 5% to less than 85% for age (Acute 02/04/14) Routine child health exam (Acute 05/03/12) 03/2014 cardio eval due to family hx with normal EKG and ECHO, no restrictions and no further cardiac needed Right groin pain (Acute) Follow up as needed Surgical History Circumcision Family History Father Asthma Other Diabetes PGM Heart disease maternal, PGM, MGF of CHF Myocardial infarction maternal, PGM, Stroke maternal Asthma PGM Social History Smoking/Tobacco Use Status: Current every day Tobacco Type: smokeless tobacco Second Hand Exposure: No Smoking risk assessment performed?: Yes Alcohol Intake: never Drug use: Never Substance use type: does not use Details: smokeless tobacco 11/19/2019 Household members: family and other Details: DAD AND SIBLINGS Pets and animals: Yes Pets and animals: dog(s) Do you feel safe at home: Yes Do you feel safe in your relationship?: Yes Exam Const General: cooperative, healthy appearing and no acute distress Orientation: alert, awake and oriented x3 [facility] Head: normal to inspection Ears: hearing grossly normal bilaterally and external ears normal General nose exam: external nose normal Mouth: oral mucosae normal Eyes General: appearance normal, both eyes and all related structures Neck Neck: normal visual inspection Resp Effort & Inspection: normal respiratory effort and able to speak in complete sentences Auscultation: clear to auscultation bilaterally Cardio Rate: regular rate Rhythm: regular rhythm GI Palpation: soft, not firm, no guarding, not rigid and nontender Back/Spine/Pelvis Cervical Spine: No cervical spinal tenderness Thoracic/Lumbar Spine: No thoracic spinal tenderness Other: Pain in left lateral neck, shoulder with head rotation and movement of upper body Back/spine/pelvis image: 1. Localized area of tenderness to palpation to the left lateral inferior back. There is no surrounding erythema, edema, ecchymosis, rash or lesions. 2. There is also tenderness to palpation extending from the right lateral inferior neck, right trapezius, right posterior shoulder and right thoracic paraspinal region. There is no step-offs, erythema, edema, ecchymosis, rash or lesions. Skin General skin exam: no rashes or lesions noted Neuro General: patient alert, patient awake and patient oriented x3 Motor: muscle tone normal throughout and strength 5/5 throughout Other: Normal muscle strength of the bilateral upper extremities. Bilateral upper ext remity distal pulses intact. Extrem General: normal to inspection and full ROM Psych Appearance: grossly normal Affect: normal affect Course Vital Signs Vital signs: Vital Signs Temperature 97.9 F 05/20/21 10:37 Pulse 90 05/20/21 10:37 Respiratory Rate 18 05/20/21 10:37 Blood Pressure 143/75 H 05/20/21 10:37 Pulse Oximetry 97 05/20/21 10:37 Temperature 97.9 F 05/20/21 10:37 Temperature Source Skin 05/20/21 10:37 Pulse 90 05/20/21 10:37 Respiratory Rate 18 05/20/21 10:37 Respiratory Effort 05/20/21 10:39 Blood Pressure 143/75 H 05/20/21 10:37 Blood Pressure Position Sitting 05/20/21 10:37 Pulse Oximetry 97 05/20/21 10:37 Oxygen Delivery Method Room Air 05/20/21 10:37 Oxygen Flow Rate 0 05/20/21 10:37
[2021-05-20] MEDS: predniSONE 20 MG TAB 40 MG PO (11:37)
[2021-05-20 11:43] VITALS: BP 118/71; PULSE 87; TEMP 36.6; O2SAT 98
[2021-05-20 11:46] VITALS: BP 118/71; PULSE 91; RESP 14; TEMP 36.8; O2SAT 100
== END 2021-05-20 11:45 | disposition home or self-care (01) ==
PROVIDERS: Emergency Provider Physician Assistant
DX: S29.012A Strain of muscle and tendon of back wall of thorax, initial encounter (principal); X50.0XXA Overexertion from strenuous movement or load, initial encounter
CPT/HCPCS: 99283; J7512

== ENCOUNTER 2022-08-12 19:38 | Outpatient (CLI) | payer BC, SELFPAY ==
--- NOTE | 2022-08-12 | DI.RAD_ITS ---
Exam(s) XR CHEST 2V PA LATERAL EXAM: XR CHEST 2V PA LATERAL CLINICAL HISTORY: cough TECHNIQUE: 2D digital imaging was performed of the chest. Two images were obtained. PA and lateral views were obtained. COMPARISON: CR,XR XR CHEST 2V PA LATERAL from 05/14/2021 FINDINGS: MEDIASTINUM: Normal. HEART: Normal. PULMONARY VASCULATURE: Normal. LUNGS: Clear. PLEURAL SPACE: No pleural effusion or pneumothorax. BONE:Within normal limits for the patient's age. OTHER FINDINGS:Normal. IMPRESSION: No acute pulmonary findings. DATA REPOSITORY: RADIATION DOSE DELIVERED:
--- NOTE | 2022-08-12 19:58 | DI.VRAD_ITS ---
PROCEDURE INFORMATION: Exam: XR Chest Exam date and time: 08/12/2022 7:42 PM Age: 22 years old Clinical indication: Cough TECHNIQUE: Imaging protocol: Radiologic exam of the chest. Views: 2 views. COMPARISON: CR XR CHEST 2V PA LATERAL 05/14/2021 9:48 PM FINDINGS: Lungs: Unremarkable. No consolidation. Pleural spaces: Unremarkable. No pleural effusion. No pneumothorax. Heart/Mediastinum: Unremarkable. No cardiomegaly. Bones/joints: Unremarkable. IMPRESSION: No acute findings. Dictated and Authenticated by: Masood Boyle MD. Ordering:LUIS A Yuan MD
== END 2022-08-12 19:58 ==
PROVIDERS: Visit Provider Physician Assistant Medical
DX: R05.9 Cough, unspecified (principal)
CPT/HCPCS: 71046

== ENCOUNTER 2022-10-17 20:35 | Emergency (ER) | payer BC, SELFPAY ==
--- NOTE | 2022-10-17 20:45 | DI.RAD_ITS ---
Exam(s) XR PORTABLE CHEST AP EXAM: XR PORTABLE CHEST AP CLINICAL HISTORY: sob, suspect asthma TECHNIQUE: 2D digital imaging was performed. COMPARISON: No exams were available for comparison FINDINGS: LUNGS: Clear. No pleural abnormality seen. HEART: Normal size. AORTA: Normal diameter. BONES: Unremarkable for age. Soft tissues: Unremarkable. IMPRESSION: No acute findings. DATA REPOSITORY: RADIATION DOSE DELIVERED:
--- NOTE | 2022-10-17 20:45 | RT.EKG_ITS ---
APPROVED REPORT Exam: Resting ECG Reason for Exam: chest pain Patient Location: E HR:113 bpm ECG Measurements Heart Rate 113 AXIS UT 141 P 62 QRSd 83 QRS -75 QT 302 T 59 QTc 416 Conclusion Sinus tachycardia...rate> 99 Left anterior fascicular block...axis(240,-40), init forces inf Physician: no stemi
[2022-10-17 20:54] VITALS: BP 156/100; PULSE 120; RESP 18; TEMP 37.3; O2SAT 95
--- NOTE | 2022-10-17 20:55 | ED.GENADUL_ITS ---
Discharge Plan Disposition Patient Disposition: Home Condition: Good Discharge Details Clinical Impression: Asthma exacerbation Primary Care Provider: None,None ED Provider: Chidi White Home Meds and New Rx's Prescriptions: New prednisone 50 mg tablet 50 mg PO DAILY Qty: 5 0RF No Action fluticasone propionate [Flonase Allergy Relief] 50 mcg/actuation spray,suspension 1 spray TISH DAILY PRN Rx Instructions: administer into each nostril ibuprofen 600 mg Tablet 600 mg PO Q8H Discharge Instructions Instructions: Asthma (ED) Additional Instructions: At this time your symptoms appear consistent with an asthma exacerbation. Please take your inhaler, 2 puffs every 6 hours for the next 3 to 4 days. Please take the prednisone steroid as directed. He has been sent to your pharmacy on file. Please use the spacer for your inhaler when using it. If you notice any worsening of your symptoms, or any new symptoms such as vomiting, diarrhea, fever, chills, shortness of breath, chest pain, numbness, weakness, or fainting , please return immediately to the emergency department for reevaluation. Please follow up with your primary care provider as soon as possible for reassessment and reevaluation. As always, it was a pleasure participating in your medical care today. Medical Decision Making 22-year-old male with a past medical history of questionable asthma, presents today for evaluation of shortness of breath and chest pain. Patient states that it began about a day and a half ago, and has gradually continued. It is made worse with exertion. He describes it as a mild chest pressure and shortness of breath sensation. He has been taking his albuterol inhaler which is helped slightly but not resolved. He denies fever or chills. He denies significant cough. He denies tearing or ripping sensation. He denies any bandlike sensation, arm neck or shoulder pain. He denies any history of cardiac disease. He denies any family history of cardiac disease at a young age. He does not smoke or vape. His mother did smoke in the house growing up, and his father does have a history of asthma. No other complaints at this time. No other modifying factors. Denies PE risk factors such as recent long car rides, immobilization, recent surgery, prior history of DVT or PE, family history of PE or DVT, morbid obesity, exogenous estrogen and smoking, hemoptysis, history of cancer. Exam demonstrates a well-appearing male, no significant respiratory distress. Diffuse wheezes throughout. No rhonchi or rales. No fever. EKG shows normal sinus rhythm with no significant abnormalities. Symptoms appearing consistent with STEMI, pericarditis, or PE based on clinical assessment. Symptoms are concerning for asthma exacerbation. Will give DuoNebs, prednisone, get a portable chest x-ray, monitor closely and reassess. 9:57 PM Patient's chest x-ray is negative for significant acute process. After breathing treatment patient is feeling notably improved. Repeat auscultation demonstrates notable improvement of the wheezes. No significant work of breathing. Oxygen saturations remained stable. Patient feels well and feels comfortable going home. Symptoms appear consistent with asthma exacerbation. Will give prescription for prednisone for home use. Recommend continued use of inhaler. Discussed red flags for which to return. I have extensively reviewed the treatment plan and discharge instructions with the patient. I have addressed all patient concerns at this time. The patient was made aware of what symptoms to monitor for that would warrant a return to the emergency department. Discussed the plan with the patient, they demonstrate verbal understanding and agreement with our assessment and plan at this time. The documentation in this chart was dictated using [email or web address] dictation software. Please excuse any dictation errors. FINDINGS: Lungs: Mild peribronchial thickening. There is no evidence of focal pulmonary consolidation. The pulmonary vasculature is normal. Pleural spaces: There is no evidence of pneumothorax. There are no pleural effusions present. Heart/Mediastinum: The cardiac silhouette is within normal limits. The mediastin um is normal. Bones/joints: The spine, sternum, ribs, and pectoral girdles show no evidence of acute abnormality Other findings: There are no soft tissue masses or calcifications. IMPRESSION: 1. Otherwise no active cardiopulmonary disease. 2. Mild peribronchial thickening. Thank you for allowing us to participate in the care of your patient. Dictated and Authenticated by: Joaquín Novoa MD 10/17/2022 9:46 PM Eastern Time ([place] & [place]) HPI General Date/Time Provider Initiated Documentation: 10/17/22 20:38 . HPI Narrative: 22-year-old male with a past medical history of questionable asthma, presents today for evaluation of shortness of breath and chest pain. Patient states that it began about a day and a half ago, and has gradually continued. It is made worse with exertion. He describes it as a mild chest pressure and shortness of breath sensation. He has been taking his albuterol inhaler which is helped slightly but not resolved. He denies fever or chills. He denies significant cough. He denies tearing or ripping sensation. He denies any bandlike sensation, arm neck or shoulder pain. He denies any history of cardiac disease. He denies any family history of cardiac disease at a young age. He does not smoke or vape. His mother did smoke in the house growing up, and his father does have a history of asthma. No other complaints at this time. No other modifying factors. Related Data Home Medications Medication Instructions Recorded Confirmed fluticasone propionate 50 1 spray intranasal DAILY PRN 03/03/20 05/20/21 mcg/actuation nasal spray,suspension (Flonase Allergy Relief) ibuprofen 600 mg tablet 600 mg PO Q8H 05/20/21 05/20/21 prednisone 50 mg tablet 50 mg PO DAILY #5 tabs 10/17/22 Previous Rx's Medication Instructions Recorded prednisone 50 mg tablet 50 mg PO DAILY #5 tabs 10/17/22 Allergies Allergy/AdvReac Type Severity Reaction Status Date / Time No Known Allergies Allergy Verified 05/20/21 10:40 General MILADYS: 4 Review of Systems All systems reviewed & are unremarkable except as noted in HPI and below PFSH All Active Problems (Updated 10/17/22 @ 21:59 by Chidi White DO) Puncture wound of foot (Acute) Asthma exacerbation (Acute) Esophagitis (Acute) Dysphagia (Acute) Chlamydia contact, treated (Acute) 04/10/19. 1gm Azithromycin. BMI (body mass index), pediatric, 5% to less than 85% for age (Acute 02/04/14) Routine child health exam (Acute 05/03/12) 03/2014 cardio eval due to family hx with normal EKG and ECHO, no restrictions and no further cardiac needed Right groin pain (Acute) Follow up as needed Surgical History Circumcision Family History Father Asthma Other Diabetes PGM Heart disease maternal, PGM, MGF of CHF Myocardial infarction maternal, PGM, Stroke maternal Asthma PGM Social History Smoking/Tobacco Use Status: Current every day Tobacco Type: smokeless tobacco Second Hand Exposure: No Smoking risk assessment performed?: Yes Alcohol Intake: never Drug use: Never Substance use type: does not use Details: smokeless tobacco 11/19/2019 Household members: family and other Details: DAD AND SIBLINGS Pets and animals: Yes Pets and animals: dog(s) Do you feel safe at home: Yes Do you feel safe in your relationship?: Yes Exam Narrative Exam Narrative: 1.Const: Well-nourished, Well-developed, appearing stated age 2.Eyes: PERRL, no conjunctival injection, and symmetrical lids. 3.ENT: Atraumatic external nose and ears. Moist MM. Neck: Symmetric, trachea midline, No thyromegaly. 4.CVS: +S1/S2, No murmurs or gallops. Peripheral pulses 2+ and equal in all extremities. Brisk capillary refill in all extremities. 5.RESP: Unlabored respiratory effort. Diffuse wheezes throughout. No rhonchi or rales. 6.GI: Soft, Nontender/Nondistended, No hepatosplenomegaly. No guarding or rebound. 7.MSK: Normocephalic/Atraumatic, Extremities w/o deformity or ttp No cyanosis or clubbing, Normal movement of all extremities 8.Skin: Warm, Dry. No rashes or lesions. 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 Sensation grossly intact, no focal neurologic deficits. 10.Psych: (AAO) x3. Appropriate mood and affect
[2022-10-17] MEDS: Albuterol/Ipratropium 3 ML UPD VIAL 6 ML UPD (21:09)
[2022-10-17] MEDS: predniSONE 20 MG TAB 60 MG PO (21:09)
--- NOTE | 2022-10-17 21:46 | DI.VRAD_ITS ---
PROCEDURE INFORMATION: Exam: XR Chest Exam date and time: 10/17/2022 9:27 PM Age: 22 years old Clinical indication: Sternal or substernal pain; Patient HX: SOB, per PT: Central/sternal; Suspect asthma TECHNIQUE: Imaging protocol: Radiologic exam of the chest. Views: 1 view. COMPARISON: CR XR CHEST 2V PA LATERAL 08/12/2022 7:42 PM FINDINGS: Lungs: Mild peribronchial thickening. There is no evidence of focal pulmonary consolidation. The pulmonary vasculature is normal. Pleural spaces: There is no evidence of pneumothorax. There are no pleural effusions present. Heart/Mediastinum: The cardiac silhouette is within normal limits. The mediastinum is normal. Bones/joints: The spine, sternum, ribs, and pectoral girdles show no evidence of acute abnormality Other findings: There are no soft tissue masses or calcifications. IMPRESSION: 1. Otherwise no active cardiopulmonary disease. 2. Mild peribronchial thickening. Dictated and Authenticated by: Joaquín Novoa MD. Ordering:KATT Murillo MD
[2022-10-17] MEDS: Albuterol/Ipratropium 3 ML UPD VIAL UPD (22:03)
[2022-10-17 22:06] VITALS: RESP 16
[2022-10-17 22:09] VITALS: BP 134/84; PULSE 100; RESP 14; O2SAT 98
== END 2022-10-17 22:33 | disposition home or self-care (01) ==
PROVIDERS: Emergency Provider Student in an Organized Health Care Education/Training Program
DX: R07.9 Chest pain, unspecified (principal); I44.4 Left anterior fascicular block; R00.0 Tachycardia, unspecified; J45.901 Unspecified asthma with (acute) exacerbation
CPT/HCPCS: 93005; 94640; 99284; 71045; 93010; J7512; J7620

== ENCOUNTER 2022-10-28 20:40 | Emergency (ER) | payer BC, SELFPAY ==
[2022-10-28] VITALS (17 sets, daily range): BP systolic 118–162; BP diastolic 51–103; PULSE 87–116; RESP 16–28; TEMP 36; O2SAT 90–99
--- NOTE | 2022-10-28 20:30 | RT.EKG_ITS ---
APPROVED REPORT Exam: Resting ECG Reason for Exam: chest pain Patient Location: E HR:109 bpm ECG Measurements Heart Rate 109 AXIS NH 187 P 67 QRSd 85 QRS -73 QT 322 T 54 QTc 435 Conclusion Sinus tachycardia...rate> 99 Left anterior fascicular block...axis(240,-40), init forces inf
--- NOTE | 2022-10-28 20:45 | DI.RAD_ITS ---
Exam(s) XR PORTABLE CHEST AP EXAM: XR PORTABLE CHEST AP CLINICAL HISTORY: dyspnea TECHNIQUE: 2D digital imaging was performed of the chest. One image was obtained. An AP view was ob tained. COMPARISON: CR,XR XR PORTABLE CHEST AP from 10/17/2022 FINDINGS: MEDIASTINUM: Normal. HEART: Normal. PULMONARY VASCULATURE: Normal. LUNGS: Clear. PLEURAL SPACE: No pleural effusion or pneumothorax. BONE:Within normal limits for the patient's age. OTHER FINDINGS:Normal. IMPRESSION: No acute pulmonary findings. DATA REPOSITORY: RADIATION DOSE DELIVERED:
--- NOTE | 2022-10-28 20:54 | ED.GENADUL_ITS ---
Discharge Plan Disposition Patient Disposition: Home Condition: Improving Discharge Details Clinical Impression: Asthma exacerbation, Chest pain, pleuritic Primary Care Provider: Aura,Local ED Provider: Misael Rowland Meds and New Rx's Prescriptions: New prednisone 10 mg tablets,dose pack 10 mg PO DIRECTED Qty: 21 0RF Rx Instructions: see taper instructions Continued fluticasone propionate [Flonase Allergy Relief] 50 mcg/actuation spray,suspension 1 spray TISH DAILY PRN Rx Instructions: administer into each nostril ibuprofen 600 mg Tablet 600 mg PO Q8H prednisone 50 mg tablet 50 mg PO DAILY Qty: 5 0RF Discharge Instructions Instructions: Chest Pain (ED), Asthma (ED) Discharge Data Discharge Physician: Misael Rowland Medical Decision Making MDM: Summary: Patient presented to the emergency department complaining of shortness of breath and pleuritic type chest pain has been going on for almost a month. He does have a history of asthma and takes albuterol with no relief and on exam he had wheezing inspiratory and expiratory around of the lung sumner with an oxygen saturation 93%. He received a DuoNeb and Solu-Medrol intravenously and now his oxygen saturation is 96% and the wheezing has significantly decreased. He states he feels better and will be discharged home Data Review Analysis All the data on this patient was reviewed by me including laboratory and imaging studies as well as bedside studies performed by me Independent review of Studies Imaging Chest x-ray reviewed by me and the radiologist shows no infiltrates Lab: Labs are unremarkable Risk Stratification: Patient with moderate asthma who received a DuoNeb treatment and steroids and will be discharged home on a tapering dose of steroids and will continue his albuterol every 6 hours Differential Diagnosis: 1. Asthma exacerbation 2. Pleuritic type chest pain 3. Acute bronchitis 4. Acute coronary syndrome 5. Pneumothorax Consultants: Shared disposition: Patient will be discharged home on tapering dose of steroids he agrees that we will continue to follow-up with asthma and will follow with his primary care physician Impression: Lab Data Lab results reviewed: Yes I reviewed the patient's lab results. ECG Data Attestation: I personally reviewed and interpreted this ECG (s) as follows: Prior ECG tracings: not available for review Interpretation: Sinus tachycardia normal axis rate [address]-T changes HPI General Date/Time Provider Initiated Documentation: 10/28/22 20:42 . HPI Narrative: Patient presents emergency department complaining of shortness of breath that started 3 weeks ago. He was not diagnosed with asthma but has had an asthma attack in the past used reports he has been coughing denies any fever denies any chills states that he has not been exposed to COVID. Reports shortness of breath and palpitations that brought him to the emergency department today. Reports mild chest pain when he coughs pleuritic in nature. Related Data Home Medications Medication Instructions Recorded Confirmed fluticasone propionate 50 1 spray intranasal DAILY PRN 03/03/20 10/28/22 mcg/actuation nasal spray,suspension (Flonase Allergy Relief) ibuprofen 600 mg tablet 600 mg PO Q8H 05/20/21 10/28/22 prednisone 50 mg tablet 50 mg PO DAILY #5 tabs 10/17/22 10/28/22 prednisone 10 mg tablets in a dose 10 mg PO DIRECTED #21 dose pk 10/28/22 pack Previous Rx's Medication Instructions Recorded prednisone 50 mg tablet 50 mg PO DAILY #5 tabs 10/17/22 prednisone 10 mg tablets in a dose 10 mg PO DIRECTED #21 dose pk 10/28/22 pack Allergies Allergy/AdvReac Type Severity Reaction Status Date / Time No Known Allergies Allergy Verified 10/28/22 20:46 General Stated Complaint: Chest Pain MILADYS: 2 Review of Systems Narrative: Review of Systems: Constitutional: No fevers, chills, sweats Eye: No recent visual problems ENT: No ear pain, nasal congestion, sore throat Respiratory: No shortness of breath, cough Cardiovascular: no, palpitations, syncope Gastrointestinal: No nausea, vomiting, diarrhea Genitourinary: No hematuria Philip/Lymph: Negative for bruising tendency, swollen lymph glands Endocrine: Negative for excessive thirst, excessive hunger Musculoskeletal: No back pain, neck pain, joint pain, muscle pain, decreased range of motion Integumentary: No rash, pruritus, abrasions Neurologic: Alert & oriented X 4 Psychiatric: No anxiety, depression PFSH All Active Problems (Updated 10/28/22 @ 22:12 by Misael Rowland MD) Puncture wound of foot (Acute) Asthma exacerbation (Acute) Chest pain, pleuritic (Acute) Esophagitis (Acute) Dysphagia (Acute) Chlamydia contact, treated (Acute) 04/10/19. 1gm Azithromycin. BMI (body mass index), pediatric, 5% to less than 85% for age (Acute 02/04/14) Routine child health exam (Acute 05/03/12) 03/2014 cardio eval due to family hx with normal EKG and ECHO, no restrictions and no further cardiac needed Right groin pain (Acute) Follow up as needed Surgical History Circumcision Family History Father Asthma Other Diabetes PGM Heart disease maternal, PGM, MGF of CHF Myocardial infarction maternal, PGM, Stroke maternal Asthma PGM Social History Smoking/Tobacco Use Status: Former Tobacco Use Second Hand Exposure: No Smoking risk assessment performed?: Yes Alcohol Intake: never Drug use: Never Substance use type: does not use Details: smokeless tobacco 11/19/2019 Household members: family and other Details: DAD AND SIBLINGS Pets and animals: Yes Pets and animals: dog(s) Do you feel safe at home: Yes Do you feel safe in your relationship?: Yes Exam Narrative Exam Narrative: Exam; vitals signs as reported above tachycardic with a O2 saturation of 93% on room air l Constitutional; In no acute distress, afebrile General: cooperative, healthy appearing, comfortable and no acute distress HEENT: Head: normal to inspection, no palpable skull fracture and normocephalic atraumatic Eyes: : appearance normal, both eyes and all related structures EOM intact bilaterally Pupils: PERRL : conjunctiva normal Direct ophthalmoscopy: normal light reflex, normal conjunctiva, normal visual acuity Ears: Normal TM, normal external canal Nose: normal no rhinorreha Neck no JVD, supple non tender Neck: normal visual inspection, full ROM and no lymphadenopathy Chest: normal inspection of the chest Respiratory : normal respiratory effort and able to speak in complete sentences inspiratory and expiratory wheezing Cardio Rate: regular rate, rhythm: Tachycardic rhythm normal heart sounds S1 and S2 no murmurs, gallops, or rubs GI : normal to inspection, normal bowel sounds, soft, non tender, non distended, no organomegaly Back/Spine/ no CVA tenderness Thoracic/Lumbar Spine: no tenderness or deformities Skin no rashes or lesions Neuro: patient alert oriented x 4 and no meningeal signs, Cranial Nerves: CN's II-XI intact bilaterally, Cognition: normal cognition, Speech: speech normal, Gait: normal gait, Depp tendon reflexes normal 2+ muscle strength 5/5 bilaterally Extremities, no edema, full range of motion, normal strength : normal Rectal: Course Reevaluation(s) Time: 22:08 Reevaluation: Patient who received a DuoNeb of albuterol ipratropium as well as Solu-Medrol IV on reexamination he is not wheezing anymore his oxygen saturations 98%. He fee ls better labs are normal Vital Signs Vital signs: Vital Signs Temperature 36.0 C L 10/28/22 20:43 Pulse 109 H 10/28/22 20:43 Respiratory Rate 20 10/28/22 20:43 Blood Pressure 162/103 H 10/28/22 20:43 Pulse Oximetry 93 10/28/22 20:43 Temperature 36.0 C L 10/28/22 20:43 Pulse 109 H 10/28/22 20:43 Respiratory Rate 20 10/28/22 20:43 Respiratory Effort Short of Breath, Incrsd Work of Breathing 10/28/22 20:46 Blood Pressure 162/103 H 10/28/22 20:43 Blood Pressure Position Sitting 10/28/22 20:43 Pulse Oximetry 93 10/28/22 20:43 Oxygen Delivery Method Room Air 10/28/22 20:43 Oxygen Flow Rate 0 10/28/22 20:43 Pain Level 7 10/28/22 20:43 PAWSS Have you Been Recently Intoxicated or Drunk Within the Last 30 days?: No Have you Ever Experienced Previous Episodes of Alcohol Withdrawal?: No Have you ever Experienced Withdrawal Seizures?: No Have you ever Experienced Delirium Tremens(DT)s?: No Have you ever undergone Alcohol Rehabilitation Treatment (i.e, inpt ot outpatient treatment programs)?: No Have you ever Experienced Blackouts?: No Have you ever Combined Alcohol with other Downers within the last 90 days?: No Have you ever Combined Alcohol with any other Substance of Abuse during the last 90 days?: No Positive Blood Alcohol level on Presentation? [PCS.BAL]: No Evidence of Increased Autonomic Activity (i.e. HR>120, tremor, sweating, agitation, nausea)?: No Result: 0 Vital Signs & Lab Results Vital Signs Most Recent Vital Signs: Most Recent Vital Signs Temp Pulse Resp BP Pulse Ox 36.0 C L 97 H 22 122/65 96 10/28/22 20:43 10/28/22 22:00 10/28/22 22:02 10/28/22 22:00 10/28/22 22:10 Point of Care Results Nursing Point of Care Results: No Data to Display Lab Results 10/28/22 20:53 10/28/22 20:53 Blood Type / Crossmatch: No Data to Display Complete Blood Count: White Blood Count 7.87 10^3/uL (4.4-10.8) 10/28/22 20:53 Red Blood Count 5.33 10^6/uL (4.36-5.78) 10/28/22 20:53 Hemoglobin 15.8 g/dL (13.5-17.5) 10/28/22 20:53 Hematocrit 46.2 % (40.0-50.0) 10/28/22 20:53 Platelet Count 327 10^3/uL (130-400) 10/28/22 20:53 Complete Metabolic Panel: Sodium 139 mmol/L (136-145) 10/28/22 20:53 Potassium 3.7 mmol/L (3.5-5.1) 10/28/22 20:53 Chloride 102 mmol/L (98-107) 10/28/22 20:53 Carbon Dioxide 28.6 mmol/L (21.0-32.0) 10/28/22 20:53 BUN 20 mg/dL (7-18) H 10/28/22 20:53 Creatinine 1.2 mg/dL (0.70-1.30) 10/28/22 20:53 Est GFR (CKD-EPI 2020) 87.69 (mL/min/1.73m2) 10/28/22 20:53 Magnesium 2.2 mg/dL (1.8-2.4) 10/28/22 20:53 Calcium 9.2 mg/dL (8.5-10.1) 10/28/22 20:53 Albumin 4.2 g/dL (3.4-5.0) 10/28/22 20:53 Glucose 89 mg/dL (74-106) 10/28/22 20:53 Liver Function Panel: Alanine Aminotransferase (ALT/SGPT) 36 U/L (16-63) 10/28/22 20: 53 Aspartate Amino Transf (AST/SGOT) 17 U/L (15-37) 10/28/22 20:53 Coagulation Panel: No Data to Display Cardiac Panel: No Data to Display Arterial Blood Gas: No Data to Display Venous Blood Gas: No Data to Display Pancreas Panel: No Data to Display Thyroid Panel: No Data to Display Infectious Disease: Coronavirus (COVID-19)(PCR) Negative (Negative) 10/28/22 21:08 Coronavirus 2019 Source Nasopharynx 10/28/22 21:08 Influenza Virus Type A (PCR) Negative (Negative) 10/28/22 21:0 8 Influenza Virus Type B (PCR) Negative (Negative) 10/28/22 21:0 8 Respiratory Syncytial Virus (PCR) Negative (Negative) 10/28/22 21:08 Blood Cultures: No Data to Display Toxicology Panel: No Data to Display
[2022-10-28] MEDS: methylPREDNISolone SUCC 125 MG VIAL IVP (21:02)
[2022-10-28] MEDS: Albuterol/Ipratropium 3 ML UPD VIAL UPD (21:02)
[2022-10-28 21:05] LABS: Abs Immature Grans 0.02 10^3/uL (0.0-0.06); Absolute Basophil Count 0.07 10^3/uL (0.0-0.2); Absolute Eosinophil Count 0.76 10^3/uL (0.0-0.7); Absolute Lymphocyte Count 2.24 10^3/uL (1.2-3.4); Absolute Monocyte Count 0.75 10^3/uL (0.1-0.8); Absolute Neutrophil Count 4.03 10^3/uL (1.2-6.7); Basophils % 0.9; Eosinophils % 9.7; HCT 46.2 % (40.0-50.0); HGB 15.8 g/dL (13.5-17.5); Immature Grans % 0.3; Lymphocytes % 28.5; MCH 29.6 pg (27.0-33.0); MCHC 34.2 % (32.0-36.0); MCV 87 fL (80-95); MPV 9.7 fL (8.0-11.0); Monocytes % 9.5; Neutrophils % 51.1; Platelet Count 327 10^3/uL (130-400); RBC 5.33 10^6/uL (4.36-5.78); RDW 12.2 % (11.8-14.1); RDW-SD 38.9 fL; WBC 7.87 10^3/uL (4.4-10.8)
[2022-10-28 21:24] LABS: ALT 36 U/L (16-63); AST 17 U/L (15-37); Albumin 4.2 g/dL (3.4-5.0); Alkaline Phosphatase 60 U/L (46-116); Anion Gap 8.4 mmol/L (3-11); BUN 20 mg/dL (7-18); Bilirubin, Total 0.5 mg/dL (0.2-1.0); CO2 28.6 mmol/L (21.0-32.0); CREATININE 1.2 mg/dL (0.70-1.30); Calcium 9.2 mg/dL (8.5-10.1); Chloride 102 mmol/L (98-107); Estimated GFR 87.69 (mL/min/1.73m2); Glucose 89 mg/dL (74-106); Magnesium 2.2 mg/dL (1.8-2.4); Potassium 3.7 mmol/L (3.5-5.1); Sodium 139 mmol/L (136-145); Total Protein 7.6 g/dL (6.4-8.2)
[2022-10-28 21:51] LABS: COVID-19 PCR Negative (Negative); Influenza A PCR Negative (Negative); Influenza B PCR Negative (Negative); RSV PCR Negative (Negative)
[2022-10-28 21:52] LABS: Source Nasopharynx
--- NOTE | 2022-10-28 22:08 | DI.VRAD_ITS ---
PROCEDURE INFORMATION: Exam: XR Chest Exam date and time: 10/28/2022 9:37 PM Age: 22 years old Clinical indication: Shortness of breath TECHNIQUE: Imaging protocol: Radiologic exam of the chest. Views: 1 view. COMPARISON: CR XR PORTABLE CHEST AP 10/17/2022 9:27 PM FINDINGS: Lungs: No acute infiltrates or edema. Pleural spaces: No pleural effusion. Heart/Mediastinum: Normal heart size. Bones/joints: No acute skeletal change. Old right clavicle fracture. IMPRESSION: 1. Clear lungs and pleural space. No acute disease. 2. Stable exam since 10/17/2022. Dictated and Authenticated by: Joaquín Davila MD. Ordering:JT Douglas MD
== END 2022-10-29 01:35 | disposition home or self-care (01) ==
PROVIDERS: Emergency Provider Emergency Medicine Emergency Medical Services
DX: R07.9 Chest pain, unspecified (principal); J45.901 Unspecified asthma with (acute) exacerbation; I44.4 Left anterior fascicular block; Z87.891 Personal history of nicotine dependence; Z79.899 Other long term (current) drug therapy
CPT/HCPCS: 80053; 87637; 93005; 94640; 96374; 99284; 71045; 83735; 85025; 93010; J2930; J7620

== ENCOUNTER 2023-01-11 21:06 | Emergency (ER) | payer BC, SELFPAY ==
--- NOTE | 2023-01-11 21:09 | ED.GENADUL_ITS ---
Discharge Plan Disposition Patient Disposition: Home Discharge Details Clinical Impression: Acute asthma exacerbation Primary Care Provider: Unknown,Unknown ED Provider: Eliceo Jaime Home Meds and New Rx's Prescriptions: New albuterol sulfate 90 mcg/actuation HFA aerosol inhaler 2 puff inhalation Q6H PRNQty: 8.5 0RF prednisone 50 mg tablet 50 mg PO DAILY Qty: 4 0RF Rx Instructions: Please begin taking tomorrow as you have received steroids in the emergency department Continued ibuprofen 600 mg Tablet 600 mg PO Q8H Discontinued fluticasone propionate [Flonase Allergy Relief] 50 mcg/actuation spray,suspension 1 spray TISH DAILY PRN Rx Instructions: administer into each nostril prednisone 10 mg tablets,dose pack 10 mg PO DIRECTED Qty: 21 0RF Rx Instructions: see taper instructions prednisone 50 mg tablet 50 mg PO DAILY Qty: 5 0RF Discharge Instructions Instructions: Asthma (ED) Additional Instructions: You are seen in the emergency department for your shortness of breath nebulization treatment and a steroid discussed your referral for a primary care provider has been on it for you. Please return to the emergency department if you develop chest pain worsening shortness of breath or have any other concerns. Otherwise please take these steroids as directed for the next 4 days starting tomorrow morning. HPI General Date/Time Provider Initiated Documentation: 01/11/23 21:09 . HPI Narrative: MDM This is an overall very well-appearing normothermic and not tachycardic 22-year-old male with history of reactive airway disease now with mildly prolonged expiratory phase with end expiratory wheeze for which patient will received nebulized albuterol and prednisone. No sore throat to suggest strep pharyngitis. Good range of motion in neck so I am not concerned for retropharyngeal abscess. Given no sore throat my suspicion is low for peritonsillar abscess. I considered PE however the patient is PERC negative so I did not send a D-dimer. Equal breath sounds and no trauma so doubt pneumothorax. No fevers and no significant mucus and so my suspicion is exceedingly low for pneumonia so I did not obtain a chest x-ray. Of note patient has had 3 chest x-rays at our institution and 1 chest x-ray at [facility] within the past year and a half. All 4 of these x-rays were read as normal. No chest pain to suggest ACS so based on the patient's age and lack of risk factors I did not obtain ECG. Patient does have mildly elevated blood pressure but is not volume overloaded so I did not obtain a urinalysis to assess for proteinuria as my suspicion was exceedingly low for nephrotic syndrome. Patient does have a reassuring echocardiogram which was performed at [facility] earlier this month and was reassuring against pulmonary hypertension. It is odd however that the patient has had multiple episodes of wheezing over the past year as he is not a smoker denies vaping. There is significant family history for reactive airway disease in the patient's father. Patient cannot recall at what age his father was diagnosed with asthma. Patient does say that during his job this summer he was around considerable secondhand smoke with could have triggered these episodes of what seemed consistent with asthma. Nonetheless he has had multiple ED presentations for reactive airway disease so have asked to obtain coordinator Crystal to have the patient seen by primary care provider in the next several weeks. I anticipate that he will likely benefit from pulmonary function. I have given the patient return indications including any worsening shortness of breath any chest pain or any fevers. 9:45 PM Patient felt improved following nebulized albuterol. Chronic conditions affecting the care of the patient: N/A History obtained from an outside historian: N/A External record review: [facility] EMR Medications: Albuterol prednisone Social determinants of health affecting disposition: N/A Management discussed with: N/A Treatment/interventions considered: N/A Response to therapies provided: Mildly improved following nebulization. HPI This is a 22-year-old previously healthy male with recent history in the past year of asthma arriving to the emergency department via private vehicle in setting of shortness of breath. He notes that he has had ongoing shortness of breath month. He has had no unintentional weight gain. He says his cough is productive of a small amount of mucus. He has had no fevers. He is having no chest pain. He does endorse a tightness in his chest that he feels that he cannot get a complete breath. 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 No recent falls. He takes no regular medications. He received all his immunizations during childhood. Exam General: Well-appearing in no acute distress speaking in complete sentences. Head: Normocephalic, atraumatic. Eye: Extraocular eye movements intact. No conjunctival injection. No scleral icterus. Ear, nose, mouth, throat: Grossly normal inspection. Normal voice, handling secretions normally. Neck: Trachea midline. Cardiovascular: Well-perfused distal extremities. Regular rate and rhythm. Respiratory: Nonlabored respiration. Mildly prolonged expiratory phase. Mild end expiratory wheezes. No stridor. No tripoding. Gastrointestinal: Nondistended abdomen. Musculoskeletal: No edema. Moving all 4 extremities spontaneously. Skin: Normal for age and race, grossly normal temperature and turgor. No acute rash. Neurologic: Alert and appropriate, no apparent acute deficits. Psychiatric: Mood and manner are appropriate. Grooming and personal hygiene are appropriate. Related Data Home Medications Medication Instructions Recorded Confirmed ibuprofen 600 mg tablet 600 mg PO Q8H 05/20/21 10/28/22 albuterol sulfate 90 mcg/actuation 2 puff inhalation Q6H PRN #8.5 01/11/23 aerosol inhaler grams prednisone 50 mg tablet 50 mg PO DAILY #4 tabs 01/11/23 Previous Rx's Medication Instructions Recorded albuterol sulfate 90 mcg/actuation 2 puff inhalation Q6H PRN #8.5 01/11/23 aerosol inhaler grams prednisone 50 mg tablet 50 mg PO DAILY #4 tabs 01/11/23 Allergies Allergy/AdvReac Type Severity Reaction Status Date / Time No Known Allergies Allergy Verified 10/28/22 20:46 General MILADYS: 2 PFSH All Active Problems (Updated 01/11/23 @ 21:28 by Eliceo Jaime MD) Acute asthma exacerbation (Acute) Puncture wound of foot (Acute) Esophagitis (Acute) Dysphagia (Acute) Chlamydia contact, treated (Acute) 04/10/19. 1gm Azithromycin. BMI (body mass index), pediatric, 5% to less than 85% for age (Acute 02/04/14) Routine child health exam (Acute 05/03/12) 03/2014 cardio eval due to family hx with normal EKG and ECHO, no restrictions and no further cardiac needed Right groin pain (Acute) Follow up as needed Surgical History Circumcision Family History Father Asthma Other Diabetes PGM Heart disease maternal, PGM, MGF of CHF Myocardial infarction maternal, PGM, Stroke maternal Asthma PGM Social History Smoking/Tobacco Use Status: Former Tobacco Use Second Hand Exposure: No Smoking risk assessment performed?: Yes Alcohol Intake: never Drug use: Never Substance use type: does not use Details: smokeless tobacco 11/19/2019 Household members: family and other Details: DAD AND SIBLINGS Pets and animals: Yes Pets and animals: dog(s) Do you feel safe at home: Yes Do you feel safe in your relationship?: Yes
[2023-01-11 21:10] VITALS: BP 143/89; PULSE 88; RESP 20; TEMP 36.5; O2SAT 95
[2023-01-11 21:13] VITALS: BP 143/86; PULSE 88; RESP 20; TEMP 37.1; O2SAT 93
--- NOTE | 2023-01-11 21:28 | NUR.NOTE ---
Pt placed on care management referral list to establish primary care, and new onset symptoms of Asthma. Pt to be sen within [address] Jaime
[2023-01-11] MEDS: predniSONE 20 MG TAB 60 MG PO (21:29)
[2023-01-11] MEDS: Albuterol 2.5 MG/3 ML INH SOLN VIAL UPD (21:31)
[2023-01-11 21:51] VITALS: BP 129/74; PULSE 98; RESP 18; O2SAT 96
== END 2023-01-11 21:51 | disposition home or self-care (01) ==
PROVIDERS: Emergency Provider Emergency Medicine
DX: J45.901 Unspecified asthma with (acute) exacerbation (principal)
CPT/HCPCS: 99283; 99284; J7512; J7613

== ENCOUNTER 2023-02-02 14:10 | Emergency (ER) | payer BC, SELFPAY ==
[2023-02-02 14:22] VITALS: BP 138/61; PULSE 122; RESP 18; TEMP 37.7; O2SAT 97
--- OUTSIDE RECORDS SUMMARY | 2023-02-02 14:32 | XMS_ITS | Continuity of Care Document ---
Author Name Unknown [place] [facility] [facility] [address] [place] [address] Encounter [facility] FIN NBR [id number] Date(s): 08/19/22 - 08/19/22 [facility] [address] [place], [place] [address] Encounter Diagnosis Asthma exacerbation(Discharge Diagnosis) - 08/19/22 Discharge Disposition: Home or Self Care Attending Physician: Alexey Khalil MD Admitting Physician: Alexey Khalil MD Allergies, Adverse Reactions, Alerts No Known Medication Allergies Functional Status 08/19/22 Other exposure to Infectious Disease COV ID-19 Symptoms Present Medications predniSONE 10 mg oral tablet See Instructions, 4 tabs x3 days, 2 tabs x3 days, 1 tab x3 days then stop, # 21 tab, 0 Refill(s), 08/29/22 11:13:00 EDT, Pharmacy: [id number], 185, cm, 08/19/22 9:50:00 EDT, Height/Length Dosing, 91, kg, 08/19/22 9:50:00 EDT, Weight Dosing Start Date: 08/19/22 Stop Date: 08/29/22 Status: Ordered Mental Status 08/19/22 Eye Opening Response [place] Spontaneous ly Best Verbal Response Dhaval Oriented Best Motor Response [place] Obeys comman ds [place] Coma Score 15 Results Radiology Reports * Exam Date Time Procedure Performing Provider Status 08/19/22 10:14 AM XR Chest 2 Views [place]; Auth (Verified) Notes: (XR Chest 2 Views) Reason For Exam: SOB;Chest pain XR Chest 2 Views EXAM DESCRIPTION: XR Chest 2 Views 08/19/2022 INDICATION: CHEST PAIN TECHNIQUE: PA and lateral views of the chest. COMPARISON: 05/25/2021 FINDINGS: The lungs are well expanded and clear with no focal consolidation or pulmonary edema. The cardiomediastinal contour and pleural margins are within normal limits. IMPRESSION: No active chest disease. JOB #: [id number] Final Signed by: Theo Swift MD Signed (Electronic Signature): 08/19/2022 10:38 am Vital Signs Most recent to oldest [Reference Range]: 1 2 Temperature Temporal Artery [36-38 Deg C ] 36 Deg C (08/19/22 9:35 AM) Peripheral Pulse Rate [60-100 bpm] 95 bp m (08/19/22 11:17 AM) 92 bpm (08/19/22 9:35 AM) Respiratory Rate [12-24 br/min] 20 br/mi n (08/19/22 9:35 AM) Blood Pressure [90-140/60-90 mmHg] 126/8 4mmHg (08/19/22 9:35 AM) Weight Dosing 91.00 kg (08/19/22 9:50 AM) Weight Estimated 91.00 kg (08/19/22 9:35 AM) Height/Length Dosing 185.000 cm (08/19/22 9:50 AM) Height/Length Estimated 185.000 cm (08/19/22 9:35 AM) Social History Social History Type Response Tobacco Current some day tob acco user Tobacco Use:. 1 Sex 1chewing tobacco Hospital Discharge Instructions Patient Education 08/19/2022 10:15:24 Asthma, Adult Asthma, Adult Asthma is a long-term (chronic) condition that causes recurrent episodes in which the airways become tight and narrow. The airways are the passages that lead from the nose and mouth down into the lungs. Asthma episodes, also called asthma attacks, can cause coughing, wheezing, shortness of breath, and chest pain. The airways can also fill with mucus. During an attack, it can be difficult to breathe. Asthma attacks can range from minor to life threatening. Asthma cannot be cured, but medicines and lifestyle changes can help control it and treat acute attacks. What are the causes? This condition is believed to be caused by inherited (genetic) and environmental factors, but its exact cause is not known. There are many things that can bring on an asthma attack or make asthma symptoms worse (triggers). Asthma triggers are different for each person. Common triggers include: ??? Mold. ??? Dust. ??? Cigarette smoke. ??? Cockroaches. ??? Things that can cause allergy symptoms (allergens), such as animal dander or pollen from trees or grass. ??? Air pollutants such as household public health aide, wood smoke, smog, or chemical odors. ??? Cold air, weather changes, and winds (which increase molds and pollen in the air). ??? Strong emotional expressions such as crying or laughing hard. ??? Stress. ??? Certain medicines (such as aspirin) or types of medicines (such as beta-blockers). ??? Sulfites in foods and drinks. Foods and drinks that may contain sulfites include dried fruit, potato chips, and sparkling grape juice. ??? Infections or inflammatory conditions such as the flu, a cold, or inflammation of the nasal membranes (rhinitis). ??? Gastroesophageal reflux disease (GERD). ??? Exercise or strenuous activity. What are the signs or symptoms? Symptoms of this condition may occur right after asthma is triggered or many hours later. Symptoms include: ??? Wheezing. This can sound like whistling when you breathe. ??? Excessive nighttime or damage cutter coughing. ??? Frequent or severe coughing with a common cold. ??? Chest tightness. ??? Shortness of breath. ??? Tiredness (fatigue) with minimal activity. How is this diagnosed? This condition is diagnosed based on: ??? Your medical history. ??? A physical exam. ??? Tests, which may include: ??? Lung function studies and pulmonary studies (spirometry). These tests can evaluate the flow of air in your lungs. ??? Allergy tests. ??? Imaging tests, such as X-rays. How is this treated? There is no cure for this condition, but treatment can help control your symptoms. Treatment for asthma usually involves: ??? Identifying and avoiding your asthma triggers. ??? Using medicines to control your symptoms. Generally, two types of medicines are used to treat asthma: ??? Controller medicines. These help prevent asthma symptoms from occurring. They are usually takenevery day. ??? Fast-acting reliever or rescue medicines. These quickly relieve asthma symptoms by widening thenarrow and tight airways. They are used as needed and provide short-term relief. ??? Using supplemental oxygen. This may be needed during a severe episode. ??? Using other medicines, such as: ??? Allergy medicines, such as antihistamines, if your asthma attacks are triggered by allergens. ??? Immune medicines (immunomodulators). These are medicines that help control the immune system. ??? Creating an asthma action plan. An asthma action plan is a written plan for managing and treating your asthma attacks. This plan includes: ??? A list of your asthma triggers and how to avoid them. ??? Information about when medicines should be taken and when their dosage should be changed. ??? Instructions about using a device called a peak flow meter. A peak flow meter measures how wellthe lungs are working and the severity of your asthma. It helps you monitor your condition. Follow these instructions at home: Controlling your home environment Control your home environment in the following ways to help avoid triggers and prevent asthma attacks: ??? Change your heating and air conditioning filter regularly. ??? Limit your use of fireplaces and wood stoves. ??? Get rid of pests (such as roaches and mice) and their droppings. ??? Throw away plants if you see mold on them. ??? Clean floors and dust surfaces regularly. Use unscented cleaning products. ??? Try to have someone else vacuum for you regularly. Stay out of rooms while they are being vacuumed and for a short while afterward. If you vacuum, use a dust mask from a hardware store, a double-layered or microfilter vacuum flask cleaner bag, or a vacuum flask cleaner with a HEPA filter. ??? Replace carpet with wood, tile, or vinyl herber. Carpet can trap dander and dust. ??? Use allergy-proof pillows, mattress covers, and box spring covers. ??? Keep your bedroom a trigger-free room. ??? Avoid pets and keep windows closed when allergens are in the air. ??? Wash beddings every week in hot water and dry them in a dryer. ??? Use blankets that are made of polyester or cotton. ??? Clean bathrooms and laura with bleach. If possible, have someone repaint the astorga in these rooms with mold-resistant paint. Stay out of the rooms that are being cleaned and painted. ??? Wash your hands often with soap and water. If soap and water are not available, use hand financial sales professional. ??? Do not allow anyone to smoke in your home. General instructions ??? Take cyob-cyk-htoyacu and prescription medicines only as told by your health care provider. ??? Speak with your health care provider if you have questions about how or when to take the medicines. ??? Make note if you are requiring more frequent dosages. ??? Do not use any products that contain nicotine or tobacco, such as cigarettes and e-cigarettes. If you need help quitting, ask your health care provider. Also, avoid being exposed to secondhand smoke. ??? Use a peak flow meter as told by your health care provider. Record and keep track of the readings. ??? Understand and use the asthma action plan to help minimize, or stop an asthma attack, without needing to seek medical care. ??? Make sure you stay up to date on your yearly vaccinations as told by your health care provider.This may include vaccines for the flu and pneumonia. ??? Avoid outdoor activities when allergen counts are high and when air quality is low. ??? Wear a ski mask that covers your nose and mouth during outdoor winter activities. Exercise indoors on cold days if you can. ??? Warm up before exercising, and take time for a cool-down period after exercise. ??? Keep all follow-up visits as told by your health care provider. This is important. Where to find more information ??? For information about asthma, turn to the Centers for Disease Control and Prevention at www.cdc.gov/asthma/faqs ??? For air quality information, turn to AirNow at airnow.gov Contact a health care provider if: ??? You have wheezing, shortness of breath, or a cough even while you are taking medicine to prevent attacks. ??? The mucus you cough up (sputum) is thicker than usual. ??? Your sputum changes from clear or white to yellow, green, echeverria, or bloody. ??? Your medicines are causing side effects, such as a rash, itching, swelling, or trouble breathing. ??? You need to use a reliever medicine more than 2???3 times a week. ??? Your peak flow reading is still at 50???79% of your personal best after following your action plan for 1 hour. ??? You have a fever. Get help right away if: ??? You are getting worse and do not respond to treatment during an asthma attack. ??? You are short of breath when at rest or when doing very little physical activity. ??? You have difficulty eating, drinking, or talking. ??? You have chest pain or tightness. ??? You develop a fast heartbeat or palpitations. ??? You have a bluish color to your lips or fingernails. ??? You are light-headed or dizzy, or you faint. ??? Your peak flow reading is less than 50% of your personal best. ??? You feel too tired to breathe normally. Summary ??? Asthma is a long-term (chronic) condition that causes recurrent episodes in which the airways become tight and narrow. These episodes can cause coughing, wheezing, shortness of breath, and chest pain. ??? Asthma cannot be cured, but medicines and lifestyle changes can help control it and treat acuteattacks. ??? Make sure you understand how to avoid triggers and how and when to use your medicines. ??? Asthma attacks can range from minor to life threatening. Get help right away if you have an asthma attack and do not respond to treatment with your usual rescue medicines. This information is not intended to replace advice given to you by your health care provider. Make sure you discuss any questions you have with your health care provider. Document Revised: 11/07/2020 Document Reviewed: 06/11/2020 [employer] Patient Education ?? 2021 [employer]. Follow Up Care 08/19/2022 09:35:44 With:Follow-up with your primary care Address: When:1 week Comments:Follow-up with your primary care as needed, they will be able to reevaluate if necessaryReturn to ED if concerns Emergency department Discharge instructions * JACEY Sommers: PERFORM Event Display: ED Discharge Information Authored Date: [id number] SANDRA GRAY :2000 Age:22 years Sex:Male Visit Date:08/19/2022 Discharge Instructions We would like to thank you for allowing us to assist you with your healthcare needs. The following includes patient education materials and information regarding your injury/illness. Diagnosis from Today's Visit Asthma exacerbation Discharge Vitals Temperature??(Temporal Artery) 96.8 ??F (36 ??C) Heart Rate??(Peripheral) 92 Respiratory Rate?? 20 Blood Pressure?? 126/84?? Height?? 72.83 in (185.000 cm) Weight??(Estimated) 200.66 lb (91.00 kg) Allergies No Known Medication Allergies What to Do Next You Need to Schedule the Following Appointments Follow Up with??Follow-up with your primary care When:??Within 1 week Why: Follow-up with your primary care as needed, they will be able to reevaluate if necessary Return to ED if concerns You were treated today on an emergency basis; it may be lopes to contact your primary care provider to notify them of your visit today. You may have been referred to your regular doctor or a specialist, please follow up as instructed. If your condition worsens or you can't get in to see the doctor, contact the Emergency Department. Medications What How Much When Instructions Next Dose New predniSONE (predniSONE 10 mg oral tablet) See instructions 4 tabs x3 days, 2 tabs x3 days, ??1 tab x3 days then stop ?? Pickup at [facility] Pharmacy Information [facility]: [address] [place], [place] [phone] Education Materials Asthma, Adult Asthma is a long-term (chronic) condition that causes recurrent episodes in which the airways become tight and narrow. The airways are the passages that lead from the nose and mouth down into the lungs. Asthma episodes, also called asthma attacks, can cause coughing, wheezing, shortness of breath, and chest pain. The airways can also fill with mucus. During an attack, it can be difficult to breathe. Asthma attacks can range from minor to life threatening. Asthma cannot be cured, but medicines and lifestyle changes can help control it and treat acute attacks. What are the causes? This condition is believed to be caused by inherited (genetic) and environmental factors, but its exact cause is not known. There are many things that can bring on an asthma attack or make asthma symptoms worse (triggers). Asthma triggers are different for each person. Common triggers include: ? Mold. ? Dust. ? Cigarette smoke. ? Cockroaches. ? Things that can cause allergy symptoms (allergens), such as animal dander or pollen from trees or grass. ? Air pollutants such as household public health aide, wood smoke, smog, or chemical odors. ? Cold air, weather changes, and winds (which increase molds and pollen in the air). ? Strong emotional expressions such as crying or laughing hard. ? Stress. ? Certain medicines (such as aspirin) or types of medicines (such as beta-blockers). ? Sulfites in foods and drinks. Foods and drinks that may contain sulfites include dried fruit, potato chips, and sparkling grape juice. ? Infections or inflammatory conditions such as the flu, a cold, or inflammation of the nasal membranes (rhinitis). ? Gastroesophageal reflux disease (GERD). ? Exercise or strenuous activity. What are the signs or symptoms? Symptoms of this condition may occur right after asthma is triggered or many hours later. Symptoms include: ? Wheezing. This can sound like whistling when you breathe. ? Excessive nighttime or damage cutter coughing. ? Frequent or severe coughing with a common cold. ? Chest tightness. ? Shortness of breath. ? Tiredness (fatigue) with minimal activity. How is this diagnosed? This condition is diagnosed based on: ? Your medical history. ? A physical exam. ? Tests, which may include: ? Lung function studies and pulmonary studies (spirometry). These tests can evaluate the flow of air in your lungs. ? Allergy tests. ? Imaging tests, such as X-rays. How is this treated? There is no cure for this condition, but treatment can help control your symptoms. Treatment for asthma usually involves: ? Identifying and avoiding your asthma triggers. ? Using medicines to control your symptoms. Generally, two types of medicines are used to treat asthma: ? Controller medicines. These help prevent asthma symptoms from occurring. They are usually taken every day. ? Fast-acting reliever or rescue medicines. These quickly relieve asthma symptoms by widening the narrow and tight airways. They are used as needed and provide short-term relief. ? Using supplemental oxygen. This may be needed during a severe episode. ? Using other medicines, such as: ? Allergy medicines, such as antihistamines, if your asthma attacks are triggered by allergens. ? Immune medicines (immunomodulators). These are medicines that help control the immune system. ? Creating an asthma action plan. An asthma action plan is a written plan for managing and treating your asthma attacks. This plan includes: ? A list of your asthma triggers and how to avoid them. ? Information about when medicines should be taken and when their dosage should be changed. ? Instructions about using a device called a peak flow meter. A peak flow meter measures how well thelungs are working and the severity of your asthma. It helps you monitor your condition. Follow these instructions at home: Controlling your home environment Control your home environment in the following ways to help avoid triggers and prevent asthma attacks: ? Change your heating and air conditioning filter regularly. ? Limit your use of fireplaces and wood stoves. ? Get rid of pests (such as roaches and mice) and their droppings. ? Throw away plants if you see mold on them. ? Clean floors and dust surfaces regularly. Use unscented cleaning products. ? Try to have someone else vacuum for you regularly. Stay out of rooms while they are being vacuumed and for a short while afterward. If you vacuum, use a dust mask from a hardware store, a double-layered or microfilter vacuum flask cleaner bag, or a vacuum flask cleaner with a HEPA filter. ? Replace carpet with wood, tile, or vinyl herber. Carpet can trap dander and dust. ? Use allergy-proof pillows, mattress covers, and box spring covers. ? Keep your bedroom a trigger-free room. ? Avoid pets and keep windows closed when allergens are in the air. ? Wash beddings every week in hot water and dry them in a dryer. ? Use blankets that are made of polyester or cotton. ? Clean bathrooms and laura with bleach. If possible, have someone repaint the astorga in these rooms with mold-resistant paint. Stay out of the rooms that are being cleaned and painted. ? Wash your hands often with soap and water. If soap and water are not available, use hand financial sales professional. ? Do not allow anyone to smoke in your home. General instructions ? Take jmnq-jzt-zavbbvz and prescription medicines only as told by your health care provider. ? Speak with your health care provider if you have questions about how or when to take the medicines. ? Make note if you are requiring more frequent dosages. ? Do not use any products that contain nicotine or tobacco, such as cigarettes and e-cigarettes. If you need help quitting, ask your health care provider. Also, avoid being exposed to secondhand smoke. ? Use a peak flow meter as told by your health care provider. Record and keep track of the readings. ? Understand and use the asthma action plan to help minimize, or stop an asthma attack, without needing to seek medical care. ? Make sure you stay up to date on your yearly vaccinations as told by your health care provider. This may include vaccines for the flu and pneumonia. ? Avoid outdoor activities when allergen counts are high and when air quality is low. ? Wear a ski mask that covers your nose and mouth during outdoor winter activities. Exercise indoors on cold days if you can. ? Warm up before exercising, and take time for a cool-down period after exercise. ? Keep all follow-up visits as told by your health care provider. This is important. Where to find more information ? For information about asthma, turn to the Centers for Disease Control and Prevention at www.cdc.gov/asthma/faqs ? For air quality information, turn to AirNow at airnow.gov Contact a health care provider if: ? You have wheezing, shortness of breath, or a cough even while you are taking medicine to prevent attacks. ? The mucus you cough up (sputum) is thicker than usual. ? Your sputum changes from clear or white to yellow, green, echeverria, or bloody. ? Your medicines are causing side effects, such as a rash, itching, swelling, or trouble breathing. ? You need to use a reliever medicine more than 2???3 times a week. ? Your peak flow reading is still at 50???79% of your personal best after following your action plan for 1 hour. ? You have a fever. Get help right away if: ? You are getting worse and do not respond to treatment during an asthma attack. ? You are short of breath when at rest or when doing very little physical activity. ? You have difficulty eating, drinking, or talking. ? You have chest pain or tightness. ? You develop a fast heartbeat or palpitations. ? You have a bluish color to your lips or fingernails. ? You are light-headed or dizzy, or you faint. ? Your peak flow reading is less than 50% of your personal best. ? You feel too tired to breathe normally. Summary ? Asthma is a long-term (chronic) condition that causes recurrent episodes in which the airways become tight and narrow. These episodes can cause coughing, wheezing, shortness of breath, and chest pain. ? Asthma cannot be cured, but medicines and lifestyle changes can help control it and treat acute attacks. ? Make sure you understand how to avoid triggers and how and when to use your medicines. ? Asthma attacks can range from minor to life threatening. Get help right away if you have an asthma attack and do not respond to treatment with your usual rescue medicines. This information is not intended to replace advice given to you by your health care provider. Make sure you discuss any questions you have with your health care provider. Document Revised: 11/07/2020 Document Reviewed: 06/11/2020 [employer] Patient Education ?? 2021 [employer] Tests Performed Radiology XR Chest 2 Views 08/19/2022 10:41 EDT Medications and Immunizations Administered Given ipratropium-albuterol 0.5 mg-2.5 mg/3 mL inhalation solution, 3 mL, NEB predniSONE, 60 mg, Oral Patient/Interior Decorator Paperhanging Signature Patient Name:SANDRA GRAY I have received this information and my questions have been answered. Patient/Interior Decorator Paperhanging Name: Patient/Interior Decorator Paperhanging Signature: Relationship to Patient: Witness Name/Signature: Date: Electronically Signed on: 08/19/2022 11:15 EDTSigned by:AB Patient Care team information Care Team Personnel Name: JACEY Sommers Position: Physician Member Role: Physician Slicing Machine Operator Address: Address: [address] [place] [id number] Name: Celi Schafer I Position: Nurse Member Role: ED Nurse Care Team Related Persons Name: ARON GRAY
--- NOTE | 2023-02-02 14:40 | ED.GENADUL_ITS ---
Discharge Plan Disposition Patient Disposition: Home Condition: Improving Discharge Details Clinical Impression: Nausea, vomiting and diarrhea, Dehydration Primary Care Provider: Unknown,Unknown ED Provider: Lisandro Pineda Meds and New Rx's Prescriptions: New prochlorperazine maleate 10 mg tablet 10 mg PO Q6H PRNQty: 10 0RF Continued ibuprofen 600 mg Tablet 600 mg PO Q8H albuterol sulfate 90 mcg/actuation HFA aerosol inhaler 2 puff inhalation Q6H PRNQty: 8.5 0RF Discharge Instructions Instructions: Acute Nausea and Vomiting (ED) Additional Instructions: You were seen for vomiting and diarrhea and were quite dehydrated. Laboratory studies reassuring otherwise. Would stick with clear liquid diet for the next 12 to 24 hours before advancing to bland. Prescription for prochlorperazine if needed has been sent to your pharmacy and will help with recurrent nausea and vomiting. Follow-up with primary care next week if you are not improving. Return to ED for persistent vomiting, bloody vomit or diarrhea, worsening abdominal pain, other concerns. Medical Decision Making Patient presenting to ED with vomiting and diarrhea for about 15 hours now. Unable to tolerate anything orally. Does appear little bit dry with tachycardia and dry mucous membranes. IV established and fluids started. Ondansetron given for vomiting. Laboratory studies including [id number] COVID test ordered. Patient laboratory studies unremarkable. His white count is mildly elevated at 12. Hemoglobin, chemistries unremarkable. BUN is elevated consistent with prerenal azotemia and dehydration. He feels much better after fluids. Still somewhat nauseated despite Zofran and is dosed with Compazine with good results. Will plan discharge home with prescription for Compazine sent to pharmacy. Follow-up with PCP next week. Return precautions provided. Lab Data Lab results reviewed: Yes I reviewed the patient's lab results. HPI General Mode of arrival: ambulatory . Date/Time Provider Initiated Documentation: 02/02/23 14:39 . Limitations to Documentation: no limitations . Information obtained by: patient . HPI Narrative: Patient presents to ED with nausea, vomiting and diarrhea since about midnight last night. Unable to tolerate anything orally at this point. Denies any blood in the vomit or the diarrhea. Has mild intermittent abdominal cramping but no persistent abdominal pain. Has felt warm at home but did not take his temperature. Does have a little bit of congestion both nasally and chest but denies any chest pain, cough, shortness of breath. Denies any ill exposures that he is aware of. Related Data Home Medications Medication Instructions Recorded Confirmed ibuprofen 600 mg tablet 600 mg PO Q8H 05/20/21 02/02/23 albuterol sulfate 90 mcg/actuation 2 puff inhalation Q6H PRN #8.5 01/11/23 02/02/23 aerosol inhaler grams prochlorperazine maleate 10 mg 10 mg PO Q6H PRN #10 tabs 02/02/23 tablet Previous Rx's Medication Instructions Recorded albuterol sulfate 90 mcg/actuation 2 puff inhalation Q6H PRN #8.5 01/11/23 aerosol inhaler grams prochlorperazine maleate 10 mg 10 mg PO Q6H PRN #10 tabs 02/02/23 tablet Allergies Allergy/AdvReac Type Severity Reaction Status Date / Time No Known Allergies Allergy Verified 02/02/23 14:43 General Stated Complaint: Nausea/Vomit/Diar MILADYS: 3 Review of Systems Narrative: Per HPI PFSH All Active Problems (Updated 02/02/23 @ 17:13 by Lisandro Pineda MD) Dehydration (Acute) Nausea, vomiting and diarrhea (Acute) Medical History Asthma Surgical History Circumcision Family History Father Asthma Other Diabetes PGM Heart disease maternal, PGM, MGF of CHF Myocardial infarction maternal, PGM, Stroke maternal Asthma PGM Social History Smoking/Tobacco Use Status: Former Tobacco Use Second Hand Exposure: No Smoking risk assessment performed?: Yes Alcohol Intake: never Drug use: Never Substance use type: does not use Details: smokeless tobacco 11/19/2019 Household members: family and other Details: DAD AND SIBLINGS Pets and animals: Yes Pets and animals: dog(s) Do you feel safe at home: Yes Do you feel safe in your relationship?: Yes Exam Narrative Exam Narrative: Const: WDWN male in NAD. HEENT: NC/AT. Normal facial exam. Dry MMM. Eyes: Normal conjunctiva and sclera. Neck: Supple. Trachea midline. Lungs: Normal respiratory effort. Lungs are clear. Cor: RRR without murmur/gallop. Good radial pulses. GI: Soft. NT/ND. No guarding or rebound. Neuro: A+O x 3. Normal speech, mentation, gait. Cranial nerves II - XII grossly intact. No gross motor or sensory deficit. Ext: No C/C/E. Skin: Warm and dry without rash. Course Vital Signs Vital signs: Vital Signs Temperature 99.9 F H 02/02/23 14:22 Pulse 122 H 02/02/23 14:22 Respiratory Rate 18 02/02/23 14:22 Blood Pressure 138/61 02/02/23 14:22 Pulse Oximetry 97 02/02/23 14:22 Temperature 99.9 F H 02/02/23 14:22 Temperature Source Tympanic 02/02/23 14:22 Pulse 122 H 02/02/23 14:22 Respiratory Rate 18 02/02/23 14:22 Blood Pressure 138/61 02/02/23 14:22 Pulse Oximetry 97 02/02/23 14:22 Oxygen Delivery Method Room Air 02/02/23 14:22 Oxygen Flow Rate 0 02/02/23 14:22
[2023-02-02 14:42] VITALS: BP 138/61; PULSE 122; RESP 18; TEMP 37.7; O2SAT 97
[2023-02-02 15:00] LABS: Abs Immature Grans 0.04 10^3/uL (0.0-0.06); Absolute Basophil Count 0.04 10^3/uL (0.0-0.2); Absolute Eosinophil Count 0.01 10^3/uL (0.0-0.7); Absolute Lymphocyte Count 0.12 10^3/uL (1.2-3.4); Absolute Monocyte Count 0.49 10^3/uL (0.1-0.8); Absolute Neutrophil Count 11.31 10^3/uL (1.2-6.7); Basophils % 0.3; Eosinophils % 0.1; HCT 49.7 % (40.0-50.0); HGB 16.5 g/dL (13.5-17.5); Immature Grans % 0.3; MCH 29.1 pg (27.0-33.0); MCHC 33.2 % (32.0-36.0); MCV 88 fL (80-95); MPV 9.8 fL (8.0-11.0); Monocytes % 4.1; Neutrophils % 94.2; Platelet Count 300 10^3/uL (130-400); RBC 5.67 10^6/uL (4.36-5.78); RDW 12.1 % (11.8-14.1); RDW-SD 39.5 fL; WBC 12.01 10^3/uL (4.4-10.8)
[2023-02-02] MEDS: Lactated Ringers 2,000 ML 1000 ML IV (15:03)
[2023-02-02] MEDS: Ondansetron 4 MG/2 ML VIAL IVP (15:03)
[2023-02-02 15:16] LABS: ALT 35 U/L (16-63); AST 14 U/L (15-37); Albumin 3.8 g/dL (3.4-5.0); Alkaline Phosphatase 59 U/L (46-116); Anion Gap 10.6 mmol/L (3-11); BUN 27 mg/dL (7-18); Bilirubin, Total 0.5 mg/dL (0.2-1.0); CO2 27.4 mmol/L (21.0-32.0); CREATININE 1.2 mg/dL (0.70-1.30); Calcium 9.3 mg/dL (8.5-10.1); Chloride 101 mmol/L (98-107); Estimated GFR 87.69 (mL/min/1.73m2); Glucose 136 mg/dL (74-106); Magnesium 1.8 mg/dL (1.8-2.4); Potassium 3.9 mmol/L (3.5-5.1); Sodium 139 mmol/L (136-145); Total Protein 7.8 g/dL (6.4-8.2)
[2023-02-02] MEDS: Ibuprofen 600 MG TAB PO (16:19)
[2023-02-02] MEDS: Prochlorperazine 10 MG/2 ML VIAL IVP (16:19)
[2023-02-02 17:09] VITALS: BP 128/74; PULSE 84; RESP 16; TEMP 37; O2SAT 98
== END 2023-02-02 17:17 | disposition home or self-care (01) ==
PROVIDERS: Registered Nurse Emergency; Emergency Provider Emergency Medicine
DX: R53.83 Other fatigue (principal); R11.2 Nausea with vomiting, unspecified; R19.7 Diarrhea, unspecified; E86.0 Dehydration; R00.0 Tachycardia, unspecified; J45.909 Unspecified asthma, uncomplicated; Z79.899 Other long term (current) drug therapy
CPT/HCPCS: 36415; 80053; 87040; 96361; 96374; 99284; 83605; 83735; 85025; J0780; J2405

== ENCOUNTER 2023-03-12 00:33 | Emergency (ER) | payer BC, SELFPAY ==
[2023-03-12 00:36] VITALS: BP 177/118; PULSE 93; RESP 18; TEMP 36.8; O2SAT 99
--- NOTE | 2023-03-12 00:40 | W.ED.GENAD ---
HPI General Date/Time Provider Initiated Documentation: 03/12/23 00:36. HPI Narrative: 22-year-old male with a past medical history of asthma who does not smoke presents today for evaluation of cough mild shortness of breath. Patient states that it started last night. He did have an inhaler that I gave to him few months ago. He no longer has this as it is out. He denies any fever or chills. He denies any chest pain. He denies any productivity to his cough. No hemoptysis. No other complaints at this time. No other modifying factors. He does not currently smoke. Related Data Home Medications Medication Instructions Recorded Confirmed ibuprofen 600 mg tablet 600 mg PO Q8H 05/20/21 03/12/23 albuterol sulfate 90 mcg/actuation 2 puff inhalation Q6H PRN #8.5 01/11/23 03/12/23 aerosol inhaler grams prednisone 50 mg tablet 50 mg PO DAILY #5 tabs 03/12/23 Previous Rx's Medication Instructions Recorded albuterol sulfate 90 mcg/actuation 2 puff inhalation Q6H PRN #8.5 01/11/23 aerosol inhaler grams prednisone 50 mg tablet 50 mg PO DAILY #5 tabs 03/12/23 Allergies Allergy/AdvReac Type Severity Reaction Status Date / Time No Known Allergies Allergy Verified 03/12/23 00:41 General Stated Complaint: RespSymp MILADYS: 4 Review of Systems All systems reviewed & are unremarkable except as noted in HPI and below Exam Narrative Exam Narrative: 1.Const: Well-nourished, Well-developed, appearing stated age 2.Eyes: PERRL, no conjunctival injection, and symmetrical lids. 3.ENT: Atraumatic external nose and ears. Moist MM. Neck: Symmetric, trachea midline, No thyromegaly. 4.CVS: +S1/S2, No murmurs or gallops. Peripheral pulses 2+ and equal in all extremities. Brisk capillary refill in all extremities. 5.RESP: Unlabored respiratory effort. Mild wheezes throughout. No rales or rhonchi. 6.GI: Soft, Nontender/Nondistended, No hepatosplenomegaly. No guarding or rebound. 7.MSK: Normocephalic/Atraumatic, Extremities w/o deformity or ttp No cyanosis or clubbing, Normal movement of all extremities 8.Skin: Warm, Dry. No rashes or lesions. 9.Neuro: bariatric surgeon II-XII grossly intact. Sensation grossly intact, no focal neurologic deficits. 10.Psych: (AAO) x3. Appropriate mood and affect Course Vital Signs Vital signs: Vital Signs Temperature 36.8 C 03/12/23 00:36 Pulse 93 H 03/12/23 00:36 Respiratory Rate 18 03/12/23 00:36 Blood Pressure 177/118 H 03/12/23 00:36 Pulse Oximetry 99 03/12/23 00:36 Temperature 36.8 C 03/12/23 00:36 Temperature Source Skin 03/12/23 00:36 Pulse 93 H 03/12/23 00:36 Respiratory Rate 18 03/12/23 00:36 Blood Pressure 177/118 H 03/12/23 00:36 Blood Pressure Position Sitting 03/12/23 00:36 Pulse Oximetry 99 03/12/23 00:36 Oxygen Delivery Method Room Air 03/12/23 00:36 Oxygen Flow Rate 0 03/12/23 00:36 Medical Decision Making 22-year-old male with a past medical history of asthma who does not smoke presents today for evaluation of cough mild shortness of breath. Patient states that it started last night. He did have an inhaler that I gave to him few months ago. He no longer has this as it is out. He denies any fever or chills. He denies any chest pain. He denies any productivity to his cough. No hemoptysis. No other complaints at this time. No other modifying factors. He does not currently smoke. Exam demonstrates well-appearing male, mild wheezes throughout, O2 saturation 99%. No signs of respiratory distress. No rhonchi or rales to suggest pneumonia. No fever. Suspect initially a viral etiology that is brought about a mild asthma exacerbation secondary to lack of albuterol at home. Will give an albuterol inhaler with spacer here, as well as a dose of prednisone and a prescription for 50 mg q. 5 days. No indication for antibiotics at this time otherwise as there is no evidence of bacterial pneumonia on clinical physical exam. Discussed red flags which to return. I have extensively reviewed the treatment plan and discharge instructions with the patient. I have addressed all patient concerns at this time. The patient was made aware of what symptoms to monitor for that would warrant a return to the emergency department. Discussed the plan with the patient, they demonstrate verbal understanding and agreement with our assessment and plan at this time. The documentation in this chart was dictated using [employer] dictation software. Please excuse any dictation errors. Quality:SDOH Health Related Social Needs: No Data to Display PFSH All Active Problems (Updated 03/12/23 @ 00:42 by Chidi White DO) Asthma exacerbation (Acute) Medical History Asthma Surgical History Circumcision Family History Father Asthma Other Diabetes PGM Heart disease maternal, PGM, MGF of CHF Myocardial infarction maternal, PGM, Stroke maternal Asthma PGM Social History Smoking/Tobacco Use Status: Former Tobacco Use Second Hand Exposure: No Smoking risk assessment performed?: Yes Alcohol Intake: never Drug use: Never Substance use type: does not use Details: smokeless tobacco 11/19/2019 Household members: family and other Details: DAD AND SIBLINGS Pets and animals: Yes Pets and animals: dog(s) Do you feel safe at home: Yes Do you feel safe in your relationship?: Yes Discharge Plan Disposition Patient Disposition: Home Condition: Good Discharge Details Clinical Impression: Asthma exacerbation Primary Care Provider: No,Local ED Provider: Chidi White Home Meds and New Rx's Prescriptions: New prednisone 50 mg tablet 50 mg PO DAILY Qty: 5 0RF No Action ibuprofen 600 mg Tablet 600 mg PO Q8H albuterol sulfate 90 mcg/actuation HFA aerosol inhaler 2 puff inhalation Q6H PRNQty: 8.5 0RF Discharge Instructions Instructions: Asthma (ED) Additional Instructions: At this time you have evidence of an asthma exacerbation. Please take the prednisone as directed. Is been sent to your pharmacy on file. Please take your inhaler, 2 puffs every 4-6 hours for the next 2 to 3 days. If you notice any worsening of your symptoms, or any new symptoms such as vomiting, diarrhea, fever, chills, shortness of breath, chest pain, numbness, weakness, or fainting , please return immediately to the emergency department for reevaluation. Please follow up with your primary care provider as soon as possible for reassessment and reevaluation. As always, it was a pleasure participating in your medical care today.
[2023-03-12] MEDS: Albuterol HFA 8 GM 60 PUFF INH IH (00:46)
[2023-03-12] MEDS: predniSONE 20 MG TAB 60 MG PO (00:46)
== END 2023-03-12 00:47 | disposition home or self-care (01) ==
PROVIDERS: Emergency Provider Student in an Organized Health Care Education/Training Program
DX: J45.901 Unspecified asthma with (acute) exacerbation (principal); Z11.52 Encounter for screening for COVID-19; Z87.891 Personal history of nicotine dependence
CPT/HCPCS: 87426; 99283; J7512

== ENCOUNTER 2023-05-25 00:11 | Emergency (ER) | payer BC, SELFPAY ==
[2023-05-25] VITALS (9 sets, daily range): BP systolic 130–149; BP diastolic 71–87; PULSE 110–129; RESP 15–22; O2SAT 92–99
--- NOTE | 2023-05-25 00:15 | DI.RAD_ITS ---
Exam(s) XR PORTABLE CHEST AP EXAM: XR PORTABLE CHEST AP CLINICAL HISTORY: sob TECHNIQUE: 2D digital imaging was performed of the chest. One image was obtained. An AP view was ob tained. COMPARISON: CR,XR XR PORTABLE CHEST AP from 10/28/2022 FINDINGS: MEDIASTINUM: Normal. HEART: Normal. PULMONARY VASCULATURE: Normal. LUNGS: Clear. PLEURAL SPACE: No pleural effusion or pneumothorax. BONE:Within normal limits for the patient's age. OTHER FINDINGS:Normal. IMPRESSION: No acute pulmonary findings. DATA REPOSITORY: RADIATION DOSE DELIVERED:
--- NOTE | 2023-05-25 00:23 | ED.GENADUL_ITS ---
Discharge Plan Disposition Patient Disposition: Home Condition: Improving Discharge Details Chief Complaint: SOB Clinical Impression: Asthma Primary Care Provider: Unknown,Unknown ED Provider: Hunter Longo Home Meds and New Rx's Prescriptions: No Action ibuprofen 600 mg Tablet 600 mg PO Q8H albuterol sulfate 90 mcg/actuation HFA aerosol inhaler 2 puff inhalation Q6H PRNQty: 8.5 0RF Discharge Instructions Instructions: Asthma (ED) HPI General Date/Time Provider Initiated Documentation: 05/25/23 00:18 . HPI Narrative: 22-year-old male history of reactive airway disease presents with shortness of breath chest tightness over the last several hours. Denies history of coronary disease or thromboembolic disease. Related Data Home Medications Medication Instructions Recorded Confirmed ibuprofen 600 mg tablet 600 mg PO Q8H 05/20/21 05/25/23 albuterol sulfate 90 mcg/actuation 2 puff inhalation Q6H PRN #8.5 01/11/23 05/25/23 aerosol inhaler grams Previous Rx's Medication Instructions Recorded albuterol sulfate 90 mcg/actuation 2 puff inhalation Q6H PRN #8.5 01/11/23 aerosol inhaler grams Allergies Allergy/AdvReac Type Severity Reaction Status Date / Time No Known Allergies Allergy Verified 05/25/23 00:20 General Stated Complaint: SOB MILADYS: 3 Review of Systems Narrative: Review of Systems Constitutional: negative Eyes: negative ENT: negative Cardiovascular: negative Respiratory: Shortness of breath Gastrointestinal: negative : negative Musculoskeletal: negative Skin: negative Neurologic: negative Psych: negative Exam Narrative Exam Narrative: Physical Examination General: alert, awake, cooperative, resting comfortably, no acute distress HEENT: normocephalic, atraumatic; PERRL, EOM intact, conjunctiva normal; no nasal discharge; moist mucous membranes, oral and pharyngeal mucosa normal, tolerating secretions Neck: supple, trachea midline; full ROM Chest: normal to inspection Respiratory: normal respiratory effort, speaking in full sentences, quiet lungs bilaterally, mild expiratory wheeze Cardiac: Tachycardia, regular rhythm, S1S2 intact, no murmurs rubs or gallops GI: abdomen soft, non-tender, non-distended; no palpable mass or hepatosplenomegaly Skin: no lesions, rashes or trauma appreciated Neuro: AAOx3, normal speech, moving all extremities Extremities: No peripheral edema Psych: Appropriate mood and affect Course Vital Signs Vital signs: Vital Signs Pulse 119 H 05/25/23 00:17 Respiratory Rate 18 05/25/23 00:17 Blood Pressure 149/85 H 05/25/23 00:17 Pulse Oximetry 92 05/25/23 00:17 Pulse 119 H 05/25/23 00:17 Respiratory Rate 18 05/25/23 00:17 Respiratory Effort Short of Breath 05/25/23 00:20 Blood Pressure 149/85 H 05/25/23 00:17 Blood Pressure Position Sitting 05/25/23 00:17 Pulse Oximetry 92 05/25/23 00:17 Oxygen Delivery Method Room Air 05/25/23 00:17 Oxygen Flow Rate 0 05/25/23 00:17 Pain Level 0 05/25/23 00:17 Medical Decision Making 22-year-old male history of reactive airway disease presents with shortness of breath and chest tightness over the last several hours, has been using albuterol at home, feels similar to prior events in the past. Able to speak in full sentences however quiet tight lung sounds on examination with mild expiratory wheeze, likely asthma exacerbation lower suspicion for COPD PE ACS or aortic pathology. Low suspicion for pneumothorax or pleural effusion. Trial of alb uterol ipratropium, dexamethasone. Close reassessment 1: 27 patient feeling better after meds. Quality:SDOH Health Related Social Needs: No Data to Display PFSH All Active Problems (Updated 05/25/23 @ 01:28 by Hunter Longo MD) Asthma (Chronic) Medical History Asthma Surgical History Circumcision Family History Father Asthma Other Diabetes PGM Heart disease maternal, PGM, MGF of CHF Myocardial infarction maternal, PGM, Stroke maternal Asthma PGM Social History Smoking/Tobacco Use Status: Former Tobacco Use Second Hand Exposure: No Smoking risk assessment performed?: Yes Alcohol Intake: never Drug use: Never Substance use type: does not use Details: smokeless tobacco 11/19/2019 Household members: family and other Details: DAD AND SIBLINGS Housing: house Pets and animals: Yes Pets and animals: dog(s) Do you feel safe at home: Yes Do you feel safe in your relationship?: Yes
[2023-05-25] MEDS: Dexamethasone 10 MG/ML VIAL PO (00:28)
[2023-05-25] MEDS: Albuterol/Ipratropium 3 ML UPD VIAL 9 ML UPD (00:28)
--- NOTE | 2023-05-25 01:20 | DI.VRAD_ITS ---
PROCEDURE INFORMATION: Exam: XR Chest Exam date and time: 05/25/2023 12:49 AM Age: 22 years old Clinical indication: Shortness of breath TECHNIQUE: Imaging protocol: Radiologic exam of the chest. Views: 1 view. COMPARISON: CR XR PORTABLE CHEST AP 10/28/2022 9:37 PM FINDINGS: Tubes, catheters and devices: Cardiac leads superimposed over the chest. Lungs: No alveolar infiltrate. Pleural spaces: No pleural fluid collection. No pneumothorax. Heart/Mediastinum: Normal heart size. Bones/joints: Unremarkable for patient age. IMPRESSION: No active pulmonary disease. Dictated and Authenticated by: Terry Groves MD. Ordering:LAURA Harrison MD
== END 2023-05-25 01:42 | disposition home or self-care (01) ==
LOC: ER 01:46
PROVIDERS: Emergency Provider Emergency Medicine
DX: J45.909 Unspecified asthma, uncomplicated (principal); R07.9 Chest pain, unspecified; Z87.891 Personal history of nicotine dependence
CPT/HCPCS: 94640; 99284; 71045; J1100; J7620

== ENCOUNTER 2023-08-20 22:39 | Emergency (ER) | payer BC, SELFPAY ==
[2023-08-20] VITALS (21 sets, daily range): BP systolic 165; BP diastolic 46; PULSE 106; RESP 18; TEMP 36.9; O2SAT 91–94
[2023-08-20] MEDS: Albuterol 2.5 MG/3 ML INH SOLN VIAL UPD ×2 (22:56→22:57)
[2023-08-20] MEDS: Dexamethasone 10 MG/ML VIAL IM (22:57)
--- NOTE | 2023-08-20 23:23 | DI.RAD_ITS ---
Exam(s) XR PORTABLE CHEST AP EXAM: XR PORTABLE CHEST AP CLINICAL HISTORY: SOB, asthma TECHNIQUE: 2D digital imaging was performed of the chest. Two images were obtained. AP views were obtained. COMPARISON: CR,XR XR PORTABLE CHEST AP from 05/25/2023 FINDINGS: MEDIASTINUM: Normal. HEART: Normal. PULMONARY VASCULATURE: Normal. LUNGS: Clear. PLEURAL SPACE: No pleural effusion or pneumothorax. BONE:Within normal limits for the patient's age. OTHER FINDINGS:Normal. IMPRESSION: No acute pulmonary findings. DATA REPOSITORY: RADIATION DOSE DELIVERED:
[2023-08-21] VITALS (29 sets, daily range): BP systolic 136; BP diastolic 93; PULSE 90; RESP 19; TEMP 36.6; O2SAT 92–96
--- NOTE | 2023-08-21 00:35 | DI.VRAD_ITS ---
PROCEDURE INFORMATION: Exam: XR Chest Exam date and time: 08/20/2023 11:17 PM Age: 23 years old Clinical indication: Other: SOB, asthma TECHNIQUE: Imaging protocol: Radiologic exam of the chest. Views: 1 view. COMPARISON: CR XR PORTABLE CHEST AP 05/25/2023 12:49 AM FINDINGS: Lungs: Unremarkable. No consolidation. Pleural spaces: Unremarkable. No pleural effusion. No pneumothorax. Heart/Mediastinum: Unremarkable. No cardiomegaly. Bones/joints: Unremarkable. IMPRESSION: No acute findings. Dictated and Authenticated by: Abhinav Casillas MD. Ordering:POLLY Marrero MD
--- NOTE | 2023-08-21 01:11 | ED.GENADUL_ITS ---
Discharge Plan Disposition Patient Disposition: Home Condition: Good Discharge Details Clinical Impression: Asthma exacerbation Primary Care Provider: Unknown,Unknown ED Provider: Elida Alcantara Home Meds and New Rx's Prescriptions: Continued ibuprofen 600 mg Tablet 600 mg PO Q8H albuterol sulfate 90 mcg/actuation HFA aerosol inhaler 2 puff inhalation Q6H PRNQty: 8.5 0RF Discharge Instructions Instructions: Asthma, Adult ED Additional Instructions: Use your inhaler up to every 2 hours as needed for shortness of breath. Take the decadron in 24 hours (or before you go to bed). Establish care with a primary care physician. You need someone to help you with your asthma and your blood pressure which is high here today. Return to the emergency department for new or worsening symptoms including fever, difficulty breathing that does not respond to albuterol at home, chsst pain, or if you have any other concerns. Discharge Data Discharge Date/Time-TO BE ENTERED AT DEPARTURE: 08/21/23 01:42 HPI General Mode of arrival: ambulatory . Date/Time Provider Initiated Documentation: 08/20/23 22:40 . Limitations to Documentation: no limitations . Information obtained by: patient . HPI Narrative: 23yo M with asthma presenting with shortness of breath. Reports he ran out of his albuterol inhaler; does not see a PCP regularly. This evening began to have worsening shortness of breath similar to prior asthma episodes. No new exposures. No cough, rhinorhea, or sore throat. No fever, chills, chest pain, presnycope, or LE edema. He is otherwise in his usual state of health. Related Data Home Medications Medication Instructions Recorded Confirmed ibuprofen 600 mg tablet 600 mg PO Q8H 05/20/21 08/20/23 albuterol sulfate 90 mcg/actuation 2 puff inhalation Q6H PRN #8.5 01/11/23 08/20/23 aerosol inhaler grams Previous Rx's Medication Instructions Recorded albuterol sulfate 90 mcg/actuation 2 puff inhalation Q6H PRN #8.5 01/11/23 aerosol inhaler grams Allergies Allergy/AdvReac Type Severity Reaction Status Date / Time No Known Allergies Allergy Verified 08/20/23 22:42 General Stated Complaint: RespSymp MILADYS: 3 Review of Systems Narrative: see HPI Exam Narrative Exam Narrative: General: Alert, well appearing, well nourished Head: Normocephalic, atraumatic Neck: Trachea midline, ?Neck supple. ENT: ?MMM.? No oropharygeal lesions or exudate. Cardiac: ?RRR, no murmurs appreciated Resp: N Diminished air movement. Diffuse expiratory wheeze. Abd: ?Soft, non-distended, nontender Extremities: ?No deformities.? No peripheral edema. Neurologic: GCS 15. ? Moves all extremities freely against gravity Course Vital Signs Vital signs: Vital Signs Temperature 36.9 C 08/20/23 22:43 Pulse 106 H 08/20/23 22:43 Respiratory Rate 18 08/20/23 22:43 Blood Pressure 165/46 H 08/20/23 22:43 Pulse Oximetry 94 08/20/23 22:43 Temperature 36.9 C 08/20/23 22:43 Temperature Source Oral 08/20/23 22:43 Pulse 106 H 08/20/23 22:43 Respiratory Rate 18 08/20/23 22:43 Respiratory Effort Short of Breath, Labored 08/20/23 22:47 Respiratory Depth Deep 08/20/23 22:47 Blood Pressure 165/46 H 08/20/23 22:43 Blood Pressure Position Sitting 08/20/23 22:43 Pulse Oximetry 92 08/21/23 00:27 Oxygen Delivery Method Room Air 08/20/23 22:43 Oxygen Flow Rate 0 08/20/23 22:43 Pain Level 0 08/20/23 22:43 Medical Decision Making 23yo M with asthma presenting with shortness of breath after running out of albuterol inhaler. Systemically well. Slightly hypertensive and tachycardiac on arrival, afebrile. Diminished breath sounds with expiratory wheeze on exam, O2 sat 93% on room air. Exam consistent with asthma/reactive airway. History & exam not suggestive of pulmonary embolism, pneumothorax, pneumonia, acute coronary syndrome. Not overtly septic. Would not get labs. Will treat symptoms with albuterol neb x2, decadron. CXR to further eval. CXR independently reviewed, no focal pneumonia or pneumothorax on my view. Agree with radiology read below. On reassessment he reports feeling much breath. O2 sat 98% on room air, lungs CTAB. Discharged with inhaler, dose of decadron for tomorrow. I strongly advised him to establish care with a PCP as untreated asthma can be fatal. Also advised him to discuss his blood pressure with his PCP. Discharged home; discharge instructions and return precautions were reviewed with patient who verbalized understanding. ALl questions were answered and he is in full agreement with the plan. Imaging Data Radiologic Study: Imaging: X-Ray Radiologist's impression: IMPRESSION: No acute findings. Quality:[facility] Health Related Social Needs: No Data to Display PFSH All Active Problems (Updated 08/21/23 @ 01:11 by Elida Alcantara MD) Asthma exacerbation (Acute) Medical History Asthma Surgical History Circumcision Family History Father Asthma Other Diabetes PGM Heart disease maternal, PGM, MGF of CHF Myocardial infarction maternal, PGM, Stroke maternal Asthma PGM Social History Smoking/Tobacco Use Status: Current every day Tobacco Type: smokeless tobacco Second Hand Exposure: No Smoking risk assessment performed?: Yes Alcohol Intake: current Alcohol Intake frequency: a few times a month Alcohol type: beer Drug use: Never Substance use type: does not use Details: smokeless tobacco 11/19/2019 Household members: family and other Details: DAD AND SIBLINGS Housing: house Pets and animals: Yes Pets and animals: dog(s) Do you feel safe at home: Yes Do you feel safe in your relationship?: Yes PAWSS Have you Been Recently Intoxicated or Drunk Within the Last 30 days?: No Have you Ever Experienced Previous Episodes of Alcohol Withdrawal?: No Have you ever Experienced Withdrawal Seizures?: No Have you ever Experienced Delirium Tremens(DT)s?: No Have you ever undergone Alcohol Rehabilitation Treatment (i.e, inpt ot outpatient treatment programs)?: No Have you ever Experienced Blackouts?: No Have you ever Combined Alcohol with other Downers within the last 90 days?: No Have you ever Combined Alcohol with any other Substance of Abuse during the last 90 days?: No Positive Blood Alcohol level on Presentation? [PCS.BAL]: No Evidence of Increased Autonomic Activity (i.e. HR>120, tremor, sweating, agitation, nausea)?: No Result: 0
[2023-08-21] MEDS: Albuterol HFA 8 GM 60 PUFF INH IH (01:15)
[2023-08-21] MEDS: Dexamethasone 4 MG TAB PO (01:16)
== END 2023-08-21 01:42 | disposition home or self-care (01) ==
PROVIDERS: Emergency Provider Student in an Organized Health Care Education/Training Program
DX: J45.901 Unspecified asthma with (acute) exacerbation (principal)
CPT/HCPCS: 96372; 99284; 71045; J1100; J7613; J8540

== ENCOUNTER 2023-10-02 09:27 | Emergency (ER) | payer BC, SELFPAY ==
--- NOTE | 2023-10-02 09:15 | RT.EKG_ITS ---
APPROVED REPORT Exam: Resting ECG Reason for Exam: SOB Patient Location: E HR:92 bpm ECG Measurements Heart Rate 92 AXIS GA 140 P 21 QRSd 89 QRS -53 QT 335 T 37 QTc 415 Conclusion Sinus rhythm 92 no stemi
[2023-10-02 09:33] VITALS: BP 146/97; PULSE 89; RESP 12; TEMP 36.7; O2SAT 96
[2023-10-02 09:39] VITALS: RESP 14
--- NOTE | 2023-10-02 09:54 | NUR.NOTE ---
Nursing Note: This RN received report and transfer of care at this time
[2023-10-02] MEDS: Albuterol HFA 8 GM 60 PUFF INH IH (10:13)
[2023-10-02] MEDS: Inhaler, Assist Device 1 EACH MC (10:13)
--- NOTE | 2023-10-02 11:59 | ED.GENADUL_ITS ---
Discharge Plan Disposition Patient Disposition: Home Condition: Stable Discharge Details Clinical Impression: Asthma Primary Care Provider: Unknown,Unknown ED Provider: Stephenie Lee Home Meds and New Rx's Prescriptions: New albuterol sulfate [Proventil HFA] 90 mcg/actuation HFA aerosol inhaler 2 puff inhalation Q6H PRN (Reason: shortness of breath or wheezing) Qty: 8.5 3RF fluticasone propion-salmeterol [Advair Diskus] 100-50 mcg/dose blister with device 1 inh inhalation BID Qty: 60 0RF No Action ibuprofen 600 mg Tablet 600 mg PO Q8H albuterol sulfate 90 mcg/actuation HFA aerosol inhaler 2 puff inhalation Q6H PRNQty: 8.5 0RF Discharge Instructions Instructions: How to use your metered dose inhaler (adults), Asthma Action Plan Additional Instructions: * Start daily controller inhaler, Advair, to see if this improves your symptoms use the albuterol inhaler with spacer * As needed. If you are continuing to needed daily, we may need to increase the strength of your controller HPI General Date/Time Provider Initiated Documentation: 10/02/23 10:01 . Limitations to Documentation: no limitations . Information obtained by: patient . HPI Narrative: 23-year-old gentleman with past medical history of asthma presents for evaluation of shortness of breath and wheezing. He reports that yesterday his albuterol inhaler ran out. He states that he uses it daily, uses 2 puffs at nighttime. He reports that since he did not have the inhaler yesterday, he noted that that he had more of a cough overnight. Has denied any recent sick symptoms or fever. Cough nonproductive. He does not smoke. He states that he uses the inhaler every night because his asthma seems to be worse at nighttime. Related Data Home Medications ?Medication ?Instructions ?Recorded ?Confirmed ibuprofen 600 mg tablet 600 mg PO Q8H 05/20/21 10/02/23 albuterol sulfate 90 mcg/actuation 2 puff inhalation Q6H PRN #8.5 01/11/23 10/02/23 aerosol inhaler grams albuterol sulfate 90 mcg/actuation 2 puff inhalation Q6H PRN 10/02/23 aerosol inhaler (Proventil HFA) shortness of breath or wheezing #8.5 grams fluticasone 100 mcg-salmeterol 50 1 inh inhalation BID #60 ea 10/02/23 mcg/dose blistr powdr for inhalation (Advair Diskus) Previous Rx's ?Medication ?Instructions ?Recorded albuterol sulfate 90 mcg/actuation 2 puff inhalation Q6H PRN #8.5 01/11/23 aerosol inhaler grams albuterol sulfate 90 mcg/actuation 2 puff inhalation Q6H PRN 10/02/23 aerosol inhaler (Proventil HFA) shortness of breath or wheezing #8.5 grams fluticasone 100 mcg-salmeterol 50 1 inh inhalation BID #60 ea 10/02/23 mcg/dose blistr powdr for inhalation (Advair Diskus) Allergies Allergy/AdvReac Type Severity Reaction Status Date / Time No Known Allergies Allergy Verified 10/02/23 09:38 General Stated Complaint: SOB/SuddenOnset MILADYS: 3 Exam Narrative Exam Narrative: Review of Systems: All systems reviewed & are unremarkable except as noted in HPI and below Well-developed, no acute distress NCAT PERRL, normal conjunctiva RRR Unlabored respiratory effort no tachypnea or hypoxia, occasional expiratory wheeze scattered Nondistended abdomen Extremities w/o deformity, no cyanosis, no edema No rashes or lesions. no focal neurologic deficits Appropriate mood and affect Course Vital Signs Vital signs: Vital Signs Temperature 36.7 C 10/02/23 09:33 Pulse 89 10/02/23 09:33 Respiratory Rate 12 10/02/23 09:33 Blood Pressure 146/97 H 10/02/23 09:33 Pulse Oximetry 96 10/02/23 09:33 Temperature 36.7 C 10/02/23 09:33 Temperature Source Oral 10/02/23 09:33 Pulse 89 10/02/23 09:33 Respiratory Rate 14 10/02/23 09:39 Respiratory Effort Normal, Non-Labored, Short of Breath 10/02/23 09:39 Respiratory Depth Normal 10/02/23 09:39 Respiratory Pattern Normal 10/02/23 09:39 Blood Pressure 146/97 H 10/02/23 09:33 Blood Pressure Position Sitting 10/02/23 09:33 Pulse Oximetry 96 10/02/23 09:33 Oxygen Delivery Method Room Air 10/02/23 09:33 Oxygen Flow Rate 0 10/02/23 09:33 Pain Level 0 10/02/23 09:33 Medical Decision Making Urgent evaluation for medication refill. Patient has been using albuterol inhaler daily. Discussed this with him at length and it sounds like the patient would benefit from a controller medication. And we discussed the intention of the albuterol to be a rescue for severe symptoms I we will provide an albuterol inhaler to go home with as well as a prescription sent to the pharmacy. I have also prescribed Advair for him to start using for controller. He still working on getting into primary care. He he understands to return for reevaluation of his symptoms or not improving. At this time he does not have any symptoms concerning for acute illness, viral illness or acute exacerbation. I do not feel steroids would be indicated at this time or emergent breathing treatments. Quality:SDOH Health Related Social Needs: No Data to Display PFSH All Active Problems Asthma (Chronic) Medical History Asthma Surgical History Circumcision Family History Father Asthma Other Diabetes PGM Heart disease maternal, PGM, MGF of CHF Myocardial infarction maternal, PGM, Stroke maternal Asthma PGM Social History Smoking/Tobacco Use Status: Current every day Tobacco Type: smokeless tobacco Second Hand Exposure: No Smoking risk assessment performed?: Yes Alcohol Intake: current Alcohol Intake frequency: a few times a month Alcohol type: beer Drug use: Never Substance use type: does not use Details: smokeless tobacco 11/19/2019 Household members: family and other Details: DAD AND SIBLINGS Housing: house Pets and animals: Yes Pets and animals: dog(s) Do you feel safe at home: Yes Do you feel safe in your relationship?: Yes PAWSS Have you Been Recently Intoxicated or Drunk Within the Last 30 days?: No Have you Ever Experienced Previous Episodes of Alcohol Withdrawal?: No Have you ever Experienced Withdrawal Seizures?: No Have you ever Experienced Delirium Tremens(DT)s?: No Have you ever undergone Alcohol Rehabilitation Treatment (i.e, inpt ot outpatient treatment programs)?: No Have you ever Experienced Blackouts?: No Have you ever Combined Alcohol with other Downers within the last 90 days?: No Have you ever Combined Alcohol with any other Substance of Abuse during the last 90 days?: No Positive Blood Alcohol level on Presentation? [PCS.BAL]: No Evidence of Increased Autonomic Activity (i.e. HR>120, tremor, sweating, agitation, nausea)?: No Result: 0
== END 2023-10-02 10:05 | disposition home or self-care (01) ==
PROVIDERS: Emergency Provider Emergency Medicine
DX: R06.02 Shortness of breath (principal); J45.909 Unspecified asthma, uncomplicated
CPT/HCPCS: 93005; 94640; 99283; 93010; 99284

== ENCOUNTER 2023-10-14 00:57 | Outpatient (CLI) | payer BC, SELFPAY ==
[2023-10-14] MEDS: Methacholine 100 MG VIAL IH (11:47)
[2023-10-14] MEDS: Albuterol HFA 18 GM 200 PUFF INH IH (11:47)
[2023-10-14] MEDS: Inhaler, Assist Device 1 EACH MC (11:48)
--- NOTE | 2023-10-17 08:27 | W.PFT ---
Date of service: 10/14/23 Time of Service: 08:00 Pulmonary Function Test Result Requesting Provider Gudelia Brunson Indications: Asthma Impression Decreased FEV1/FVC is 69%. Normal FEV1 and 94% normal FVC at 112%. No reversibility after bronchodilator. Flow-volume curve shows a subtle flattening of inspiratory curve. Impression Very mild obstructive ventilatory defect with a flattening of an inspiratory curve which could be suggestive of cord dysfunction Clinical Correlation therefore is recommended.
== END 2023-10-14 00:58 | disposition home or self-care (01) ==
LOC: RT 00:58
PROVIDERS: PCP Nurse Practitioner Family; Visit Provider Nurse Practitioner Family
DX: J45.909 Unspecified asthma, uncomplicated (principal)
CPT/HCPCS: 00123; 94060; 94070; 94726; 94729; 94010; J7674

== ENCOUNTER 2023-11-17 00:58 | Emergency (ER) | payer BC, SELFPAY ==
[2023-11-17 00:59] VITALS: BP 142/79; PULSE 84; RESP 16; TEMP 36.3; O2SAT 97
[2023-11-17 01:05] VITALS: BP 142/79; PULSE 84; RESP 16; TEMP 36.3; O2SAT 97
--- NOTE | 2023-11-17 01:23 | W.ED.GENAD ---
Discharge Plan Disposition Patient Disposition: Home Condition: Good Discharge Details Clinical Impression: Upper respiratory infection Primary Care Provider: Gudelia Brunson ED Provider: Elida Alcantara Home Meds and New Rx's Prescriptions: Continued ibuprofen 600 mg Tablet 600 mg PO Q8H albuterol sulfate 90 mcg/actuation HFA aerosol inhaler 2 puff inhalation Q6H PRNQty: 8.5 0RF albuterol sulfate [Proventil HFA] 90 mcg/actuation HFA aerosol inhaler 2 puff inhalation Q6H PRN (Reason: shortness of breath or wheezing) Qty: 8.5 3RF fluticasone propion-salmeterol [Advair Diskus] 100-50 mcg/dose blister with device 1 inh inhalation BID Qty: 60 0RF Discharge Instructions Instructions: Upper Respiratory Infection ED Additional Instructions: Try decongestant nasal spray and/or pills over the counter; this should help with your ear pressure. Call your primary care doctor today to schedule an appointment for within the next three days to follow up on your visit here. Return to the emergency department for new or worsening symptoms. Stand Alone Forms: Work Release HPI General Mode of arrival: ambulatory. Date/Time Provider Initiated Documentation: 11/17/23 00:59. Limitations to Documentation: no limitations. Information obtained by: patient. HPI Narrative: 23yo M with hx of asthma presenting with four hours of bilateral ear pressure and 1 day of nasal congestion. Hearing is slightly muffled. Tried a Neti Pot without improvement. No ear pain, just pressure/discomfort. Otherwise in his usual state of health with no fevers, chills, rash, shortness of breath, wheezing, sore throat, or other concerns. Related Data Home Medications ?Medication ?Instructions ?Recorded ?Confirmed ibuprofen 600 mg tablet 600 mg PO Q8H 05/20/21 11/17/23 albuterol sulfate 90 mcg/actuation 2 puff inhalation Q6H PRN #8.5 01/11/23 11/17/23 aerosol inhaler grams albuterol sulfate 90 mcg/actuation 2 puff inhalation Q6H PRN 10/02/23 11/17/23 aerosol inhaler (Proventil HFA) shortness of breath or wheezing #8.5 grams fluticasone 100 mcg-salmeterol 50 1 inh inhalation BID #60 ea 10/02/23 11/17/23 mcg/dose blistr powdr for inhalation (Advair Diskus) Previous Rx's ?Medication ?Instructions ?Recorded albuterol sulfate 90 mcg/actuation 2 puff inhalation Q6H PRN #8.5 01/11/23 aerosol inhaler grams albuterol sulfate 90 mcg/actuation 2 puff inhalation Q6H PRN 10/02/23 aerosol inhaler (Proventil HFA) shortness of breath or wheezing #8.5 grams fluticasone 100 mcg-salmeterol 50 1 inh inhalation BID #60 ea 10/02/23 mcg/dose blistr powdr for inhalation (Advair Diskus) Allergies Allergy/AdvReac Type Severity Reaction Status Date / Time No Known Allergies Allergy Verified 11/17/23 01:07 General Stated Complaint: EarProblem MILADYS: 4 Review of Systems Narrative: see HPI Exam Narrative Exam Narrative: General: Alert, well appearing, well nourished, in no acute distress. Head: Normocephalic, atraumatic Neck: Trachea midline, ?Neck supple. ENT: ?MMM.? No oropharygeal lesions or exudate. TM's clear. Cardiac: ?RRR, no murmurs appreciated Resp: No respiratory distress. CTAB. Abd: ?Soft, non-distended, nontender : ?No suprapubic tenderness. No CVA tenderness. Extremities: ?No deformities.? No peripheral edema. Neurologic: GCS 15. ? Moves all extremities freely against gravity Course Vital Signs Vital signs: Vital Signs Temperature 36.3 C L 11/17/23 00:59 Pulse 84 11/17/23 00:59 Respiratory Rate 16 11/17/23 00:59 Blood Pressure 142/79 H 11/17/23 00:59 Pulse Oximetry 97 11/17/23 00:59 Temperature 36.3 C L 11/17/23 01:05 Temperature Source Oral 11/17/23 01:05 Pulse 84 11/17/23 01:05 Respiratory Rate 16 11/17/23 01:05 Respiratory Effort Normal, Non-Labored 11/17/23 01:05 Blood Pressure 142/79 H 11/17/23 01:05 Blood Pressure Position Sitting 11/17/23 01:05 Pulse Oximetry 97 11/17/23 01:05 Oxygen Delivery Method Room Air 11/17/23 01:05 Oxygen Flow Rate 0 11/17/23 00:59 Pain Level 4 11/17/23 01:05 Medical Decision Making 23yo M with hx of asthma presenting with four hours of bilateral ear pressure and 1 day of nasal congestion. Vital signs reassuring on arrival. Well appearing on exam, no respiratory distress, TM's clear with no erythema. Suspect nasal congestion and mild ear effusion. Not concerned for sepsis, pneumonia, otitis externa, otitis media. No indication for labs or imaging. Will give Afrin and pseudephedrine here, advised continued symptomatic treatment at home. Reviewed risks of Neti Pot including intracranial amoebic infection. Discharged home; discharge instructions and return precautions were reviewed with patient who verbalized understanding. All questions were answered and he is in full agreement with the plan. Quality:SDOH Health Related Social Needs: No Data to Display PFSH All Active Problems (Updated 11/17/23 @ 01:27 by Elida Alcantara MD) Upper respiratory infection (Acute) Medical History Asthma Surgical History Circumcision Family History Father Asthma Other Diabetes PGM Heart disease maternal, PGM, MGF of CHF Myocardial infarction maternal, PGM, Stroke maternal Asthma PGM Social History (Updated 10/10/23 @ 14:53 by Kelly Fraire) Smoking/Tobacco Use Status: Current every day Tobacco Type: smokeless tobacco Second Hand Exposure: No Smoking risk assessment performed?: Yes Alcohol Intake: current Alcohol Intake frequency: a few times a month Alcohol type: beer Drug use: Never Substance use type: does not use Details: smokeless tobacco 11/19/2019 Adopted: No Caregiver/Support person: No Household members: none Housing: house Number of Children: 0 Communication Needs: None Do you need help understanding health information?: Never Pets and animals: Yes Pets and animals: dog(s) Sexually active: Yes Do you think of yourself as: straight/heterosexual Current gender identity: male What is your relationship status?: living with partner How often do you talk on the phone with friends or family?: three or more times per week How often do you get together with friends or relatives?: three or more times per week How often do you attend orthodoxy or denominational services?: decline to answer Do you belong to any clubs or organized social groups?: no Panel score (0-1 are the most socially isolated patients): 2 What type of physical activity do you participate in: regular exercise Richelle/Baptist: Yazidi Special richelle needs: No Seatbelt use: always Helmet use: Yes Drive intox or ride w/intox commercial driver's license driver: No Firearms in home: Yes Firearms unloaded and locked: Yes Do you feel safe at home: Yes Do you feel safe in your relationship?: Yes Victim of physical abuse: No Victim of emotional abuse: No Victim of sexual abuse: No Would you like helpful sources: No
[2023-11-17] MEDS: Oxymetazolone 0.05% SPRAY 15 ML BTL 30 ML NS (01:29)
== END 2023-11-17 01:36 | disposition home or self-care (01) ==
PROVIDERS: Emergency Provider Student in an Organized Health Care Education/Training Program; PCP Nurse Practitioner Family
DX: J06.9 Acute upper respiratory infection, unspecified (principal); H92.03 Otalgia, bilateral
CPT/HCPCS: 99282; 99283

== ENCOUNTER 2023-11-18 23:20 | Emergency (ER) | payer BC, SELFPAY ==
[2023-11-18 23:23] VITALS: BP 177/103; PULSE 100; RESP 20; TEMP 36.8; O2SAT 95
[2023-11-18 23:26] VITALS: BP 177/103; PULSE 100; RESP 20; RESP 5; TEMP 36.8; O2SAT 95
[2023-11-18] MEDS: Albuterol/Ipratropium 3 ML UPD VIAL UPD (23:26)
[2023-11-18] MEDS: predniSONE 20 MG TAB 60 MG PO (23:37)
--- NOTE | 2023-11-18 23:48 | W.ED.GENAD ---
Discharge Plan Disposition Patient Disposition: Home Condition: Good Discharge Details Clinical Impression: Asthma exacerbation Primary Care Provider: Gudelia Brunson ED Provider: Lisandro Pineda Meds and New Rx's Prescriptions: New prednisone 20 mg tablet 20 mg PO HS Qty: 8 0RF Continued ibuprofen 600 mg Tablet 600 mg PO Q8H albuterol sulfate [Proventil HFA] 90 mcg/actuation HFA aerosol inhaler 2 puff inhalation Q6H PRN (Reason: shortness of breath or wheezing) Qty: 8.5 3RF Discharge Instructions Instructions: Asthma, Adult ED Additional Instructions: Please use your inhaler every 4-6 hours over the next couple of days. Take prednisone as directed. Follow-up with your primary care this week. Please ask them to review the raw data from the pulmonary function testing as I think it may potentially have been interpreted wrong and the final report. Return to ED for any increased difficulty breathing, chest pain, mental status change, other concerns. Referrals: Gudelia Brunson, SENIOR NET SOFTWARE DEVELOPER [Primary Care Provider] - [facility] General Mode of arrival: ambulatory. Date/Time Provider Initiated Documentation: 11/18/23 23:27. Limitations to Documentation: no limitations. Information obtained by: patient, RN notes reviewed and old records reviewed. HPI Narrative: Patient presents to ED with complaint of difficulty breathing and wheezing. Patient seen here in the last 2 days with mild URI type symptoms. Has been using albuterol inhaler with some relief. Has been to the ED previously for asthma exacerbations. Reports having PFTs done recently. Is not currently on a maintenance inhaler. He was written for 1 from a previous ED visit but insurance would not cover it. Denies any chest pain. Denies any fever or worsening URI symptoms. Related Data Home Medications ?Medication ?Instructions ?Recorded ?Confirmed ibuprofen 600 mg tablet 600 mg PO Q8H 05/20/21 11/18/23 albuterol sulfate 90 mcg/actuation 2 puff inhalation Q6H PRN 10/02/23 11/18/23 aerosol inhaler (Proventil HFA) shortness of breath or wheezing #8.5 grams prednisone 20 mg tablet 20 mg PO HS #8 tabs 11/19/23 Previous Rx's ?Medication ?Instructions ?Recorded albuterol sulfate 90 mcg/actuation 2 puff inhalation Q6H PRN 10/02/23 aerosol inhaler (Proventil HFA) shortness of breath or wheezing #8.5 grams prednisone 20 mg tablet 20 mg PO HS #8 tabs 11/19/23 Allergies Allergy/AdvReac Type Severity Reaction Status Date / Time No Known Allergies Allergy Verified 11/18/23 23:28 General Stated Complaint: SOB MILADYS: 3 Review of Systems Narrative: Per HPI Exam Narrative Exam Narrative: Const: WDWN male in NAD. VS per triage. HEENT: NC/AT. Normal facial exam. Neck: Supple. Trachea midline. Lungs: Normal respiratory effort. Lungs with some wheezing and decreased air movement. Cor: RRR without murmur. Good radial pulses. Neuro: A+O x 3. Normal speech, mentation, gait. Cranial nerves II - XII grossly intact. No gross motor or sensory deficit. Ext: No C/C/E. Course Vital Signs Vital signs: Vital Signs Temperature 98.3 F 11/18/23 23:23 Pulse 100 H 11/18/23 23:23 Respiratory Rate 20 11/18/23 23:23 Blood Pressure 177/103 H 11/18/23 23:23 Pulse Oximetry 95 11/18/23 23:23 Temperature 98.3 F 11/18/23 23:26 Temperature Source Temporal Artery Scan 11/18/23 23:26 Pulse 100 H 11/18/23 23:26 Respiratory Rate 20 11/18/23 23:26 Respiratory Effort Short of Breath 11/18/23 23:26 Blood Pressure 177/103 H 11/18/23 23:26 Blood Pressure Position Sitting 11/18/23 23:26 Pulse Oximetry 95 11/18/23 23:26 Oxygen Delivery Method Room Air 11/18/23 23:26 Oxygen Flow Rate 0 11/18/23 23:23 Pain Level 0 11/18/23 23:26 Medical Decision Making Patient presenting with wheezing and shortness of breath. Has been here previously for same. Recently had PFTs done to document asthma. Patient reports that the tech who performed the study stated he seemed to fit the criteria for asthma. Patient reports that PCP told him he may need further testing for possible vocal cord problems. In any event tonight he does have wheezing and decreased breath sounds. He has had some mild URI type symptoms. He is not in distress. Will plan a DuoNeb treatment as well as a prednisone burst. I reviewed the patient's PFTs which were done at the end of September. The pulmonary physician final read reports some reversible bronchospasm. It also mentions possibility of vocal cord problem. However, looking at the PFT results themselves including the narrative provided by crime scene evidence technician there seems to be a fair amount of reversible bronchospasm after a methacholine challenge. His FEV decreased by 33% after methacholine and improved back to baseline after 4 puffs of albuterol. Patient is markedly better after a single DuoNeb. I will continue prednisone over the next 4 nights. He is instructed to use albuterol 2 puffs with his spacer every 4-6 hours. I have asked him to follow-up with his primary care and discuss the results of the PFTs. May want a second look at the study which seems to suggest that he does have fair amount of reversible bronchospasm. Return precautions provided. Medical Records Medical records reviewed: Yes I reviewed the patient's medical records. Medical records narrative: See [facility] PFSH All Active Problems Asthma exacerbation (Acute) Upper respiratory infection (Acute) Medical History Asthma Surgical History Circumcision Family History Father Asthma Other Diabetes PGM Heart disease maternal, PGM, MGF of CHF Myocardial infarction maternal, PGM, Stroke maternal Asthma PGM Social History Smoking/Tobacco Use Status: Former Tobacco Use Second Hand Exposure: No Smoking risk assessment performed?: Yes Alcohol Intake: current Alcohol Intake frequency: a few times a month Alcohol type: beer Drug use: Never Substance use type: does not use Details: smokeless tobacco 11/19/2019 Adopted: No Caregiver/Support person: No Household members: none Housing: house Number of Children: 0 Communication Needs: None Do you need help understanding health information?: Never Pets and animals: Yes Pets and animals: dog(s) Sexually active: Yes Do you think of yourself as: straight/heterosexual Current gender identity: male What is your relationship status?: living with partner How often do you talk on the phone with friends or family?: three or more times per week How often do you get together with friends or relatives?: three or more times per week How often do you attend congregational or taoist services?: decline to answer Do you belong to any clubs or organized social groups?: no Panel score (0-1 are the most socially isolated patients): 2 What type of physical activity do you participate in: regular exercise Richelle/Worship: Pentecostalism Special richelle needs: No Seatbelt use: always Helmet use: Yes Drive intox or ride w/intox trailer driver: No Firearms in home: Yes Firearms unloaded and locked: Yes Do you feel safe at home: Yes Do you feel safe in your relationship?: Yes Victim of physical abuse: No Victim of emotional abuse: No Victim of sexual abuse: No Would you like helpful sources: No
[2023-11-19 00:02] VITALS: BP 136/81; PULSE 86; RESP 18; O2SAT 95
== END 2023-11-19 00:08 | disposition home or self-care (01) ==
PROVIDERS: Emergency Provider Emergency Medicine; PCP Nurse Practitioner Family
DX: J45.901 Unspecified asthma with (acute) exacerbation (principal)
CPT/HCPCS: 99284; J7512; J7620

== ENCOUNTER 2024-03-06 23:20 | Emergency (ER) | payer BC, SELFPAY ==
[2024-03-06 23:26] VITALS: BP 159/93; PULSE 110; RESP 20; TEMP 36.4; O2SAT 95
--- NOTE | 2024-03-06 23:39 | W.ED.GENAD ---
Discharge Plan Disposition Patient Disposition: Home Condition: Good Discharge Details Clinical Impression: Asthma, Bronchitis Primary Care Provider: Gudelia Brunson ED Provider: Chidi White Home Meds and New Rx's Prescriptions: New doxycycline hyclate 100 mg tablet 100 mg PO BID Qty: 20 0RF No Action albuterol sulfate 90 mcg/actuation HFA aerosol inhaler 2 puff inhalation Q6H PRN (Reason: shortness of breath or wheezing) Qty: 8.5 3RF budesonide-formoterol [Symbicort] 160-4.5 mcg/actuation HFA aerosol inhaler 1 inh inhalation ONCE Qty: 10.2 3RF ibuprofen 600 mg Tablet 600 mg PO Q8H prednisone 50 mg tablet 50 mg PO DAILY Discharge Instructions Instructions: Asthma in adults, Acute bronchitis Additional Instructions: Please continue to take your inhalers and steroid as directed. If you notice that your symptoms are not improving over the next 72 hours, or if your cough and fever worsen, please take the antibiotic as prescribed. If you notice any worsening of your symptoms, or any new symptoms such as vomiting, diarrhea, fever, chills, shortness of breath, chest pain, numbness, weakness, or fainting , please return immediately to the emergency department for reevaluation. Please follow up with your primary care provider as soon as possible for reassessment and reevaluation. As always, it was a pleasure participating in your medical care today. Referrals: Gudelia Brunson NP [Primary Care Provider] - [facility] General Date/Time Provider Initiated Documentation: 03/06/24 23:28. HPI Narrative: 23-year-old male with a past medical history of asthma presents today for evaluation of mild wheeze. Patient states that for the last 2 to 3 days he has had mild congestion and wheeze. He went to urgent care earlier today and was prescribed prednisone. He does have Symbicort inhaler and albuterol inhaler at home. He denies any fever or chills. He states that this evening he noticed coming back and was hoping to get a breathing treatment. No other complaints at this time. Cough is productive, with clear white sputum. No hemoptysis. Related Data Home Medications ?Medication ?Instructions ?Recorded ?Confirmed ibuprofen 600 mg tablet 600 mg PO Q8H 05/20/21 03/06/24 albuterol sulfate 90 mcg/actuation 2 puff inhalation Q6H PRN 01/05/24 03/06/24 aerosol inhaler shortness of breath or wheezing #8.5 grams budesonide-formoterol HFA 160 1 inh inhalation ONCE #10.2 grams 01/05/24 03/06/24 mcg-4.5 mcg/actuation aerosol inhaler (Symbicort) prednisone 50 mg tablet 50 mg PO DAILY 03/06/24 03/06/24 doxycycline hyclate 100 mg tablet 100 mg PO BID #20 tabs 03/07/24 Previous Rx's ?Medication ?Instructions ?Recorded albuterol sulfate 90 mcg/actuation 2 puff inhalation Q6H PRN 01/05/24 aerosol inhaler shortness of breath or wheezing #8.5 grams budesonide-formoterol HFA 160 1 inh inhalation ONCE #10.2 grams 01/05/24 mcg-4.5 mcg/actuation aerosol inhaler (Symbicort) doxycycline hyclate 100 mg tablet 100 mg PO BID #20 tabs 03/07/24 Allergies Allergy/AdvReac Type Severity Reaction Status Date / Time No Known Allergies Allergy Verified 03/06/24 23:26 General Stated Complaint: RespSymp MILADYS: 4 Exam Narrative Exam Narrative: 1.Const: Well-nourished, Well-developed, appearing stated age 2.Eyes: PERRL, no conjunctival injection, and symmetrical lids. 3.ENT: Atraumatic external nose and ears. Moist MM. Neck: Symmetric, trachea midline, No thyromegaly. 4.CVS: +S1/S2, Peripheral pulses 2+ and equal in all extremities. Brisk capillary refill in all extremities. 5.RESP: Diffuse wheezes throughout, no significant rales or rhonchi 6.GI: Soft, Nontender/Nondistended, No hepatosplenomegaly. No guarding or rebound. 7.MSK: Normocephalic/Atraumatic, Extremities w/o deformity or ttp No cyanosis or clubbing, Normal movement of all extremities 8.Skin: Warm, Dry. No rashes or lesions. 9.Neuro: loans consultant II-XII grossly intact. Sensation grossly intact, no focal neurologic deficits. 10.Psych: (AAO) x3. Appropriate mood and affect Course Vital Signs Vital signs: Vital Signs Temperature 36.4 C 03/06/24 23:26 Pulse 110 H 03/06/24 23:26 Respiratory Rate 20 03/06/24 23:26 Blood Pressure 159/93 H 03/06/24 23:26 Pulse Oximetry 95 03/06/24 23:26 Temperature 36.4 C 03/06/24 23:26 Temperature Source Tympanic 03/06/24 23:26 Pulse 110 H 03/06/24 23:26 Respiratory Rate 20 03/06/24 23:26 Respiratory Effort Normal 03/06/24 23:31 Respiratory Depth Normal 03/06/24 23:31 Blood Pressure 159/93 H 03/06/24 23:26 Blood Pressure Position Sitting 03/06/24 23:26 Pulse Oximetry 95 03/06/24 23:26 Oxygen Delivery Method Room Air 03/06/24 23: Oxygen Flow Rate 0 03/06/24 23: Pain Level 0 03/06/24 23:31 Medical Decision Making 23-year-old male with a past medical history of asthma presents today for evaluation of mild wheeze. Patient states that for the last 2 to 3 days he has had mild congestion and wheeze. He went to urgent care earlier today and was prescribed prednisone. He does have Symbicort inhaler and albuterol inhaler at home. He denies any fever or chills. He states that this evening he noticed coming back and was hoping to get a breathing treatment. No other complaints at this time. Cough is productive, with clear white sputum. No hemoptysis. Exam demonstrates well-appearing male, mild tachycardia, no hypoxemia or tachypnea. No retractions. Symptoms appear consistent with continued asthma exacerbation. Prednisone prescription was notably appropriate, patient has excellent inhalers for home use. No clinical evidence to suggest pneumonia at this time, however I will do a bedside ultrasound to evaluate for any underlying infiltrate. Will give 2 breathing treatments here, monitor closely and reassess. Bedside ultrasound was performed, unfortunately we are not able to save the images. Patient does have some evidence of early consolidation some scattered B-lines. After breathing treatments his wheezes have completely resolved, he feels much better and feels comfortable going home. Will recommend continuation of steroid, inhalers, we will give a prescription for doxycycline if his symptoms are not improving or he develops fever. Discussed red flags for which to return. I have extensively reviewed the treatment plan and discharge instructions with the patient. I have addressed all patient concerns at this time. The patient was made aware of what symptoms to monitor for that would warrant a return to the emergency department. Discussed the plan with the patient, they demonstrate verbal understanding and agreement with our assessment and plan at this time. The documentation in this chart was dictated using [employer] dictation software. Please excuse any dictation errors. Quality:SDOH Health Related Social Needs: No Data to Display PFSH All Active Problems (Updated 03/07/24 @ 00:43 by Chidi White DO) Bronchitis (Acute) Asthma (Chronic) Medical History Asthma Surgical History Circumcision Family History Father Asthma Other Diabetes PGM Heart disease maternal, PGM, MGF of CHF Myocardial infarction maternal, PGM, Stroke maternal Asthma PGM Social History Smoking/Tobacco Use Status: Former Tobacco Use Second Hand Exposure: No Smoking risk assessment performed?: Yes Alcohol Intake: current Alcohol Intake frequency: a few times a month Alcohol type: beer Drug use: Never Substance use type: does not use Details: smokeless tobacco 11/19/2019 Adopted: No Caregiver/Support person: No Household members: none Housing: house Number of Children: 0 Communication Needs: None Do you need help understanding health information?: Never Pets and animals: Yes Pets and animals: dog(s) Sexually active: Yes Do you think of yourself as: straight/heterosexual Current gender identity: male What is your relationship status?: living with partner How often do you talk on the phone with friends or family?: three or more times per week How often do you get together with friends or relatives?: three or more times per week How often do you attend episcopalian or uatsdin services?: decline to answer Do you belong to any clubs or organized social groups?: no Panel score (0-1 are the most socially isolated patients): 2 What type of physical activity do you participate in: regular exercise Richelle/Yarsanism: Yazidi Special richelle needs: No Seatbelt use: always Helmet use: Yes Drive intox or ride w/intox m48/m60 tank driver: No Firearms in home: Yes Firearms unloaded and locked: Yes Do you feel safe at home: Yes Do you feel safe in your relationship?: Yes Victim of physical abuse: No Victim of emotional abuse: No Victim of sexual abuse: No Would you like helpful sources: No PAWSS Have you Been Recently Intoxicated or Drunk Within the Last 30 days?: No Have you Ever Experienced Previous Episodes of Alcohol Withdrawal?: No Have you ever Experienced Withdrawal Seizures?: No Have you ever Experienced Delirium Tremens(DT)s?: No Have you ever undergone Alcohol Rehabilitation Treatment (i.e, inpt ot outpatient treatment programs)?: No Have you ever Experienced Blackouts?: No Have you ever Combined Alcohol with other Downers within the last 90 days?: No Have you ever Combined Alcohol with any other Substance of Abuse during the last 90 days?: No Positive Blood Alcohol level on Presentation? [PCS.BAL]: No Evidence of Increased Autonomic Activity (i.e. HR>120, tremor, sweating, agitation, nausea)?: No Result: 0
[2024-03-06] MEDS: Albuterol/Ipratropium 3 ML UPD VIAL 6 ML UPD (23:47)
== END 2024-03-07 01:06 | disposition home or self-care (01) ==
PROVIDERS: Emergency Provider Student in an Organized Health Care Education/Training Program; PCP Nurse Practitioner Family
DX: J45.909 Unspecified asthma, uncomplicated (principal); J20.9 Acute bronchitis, unspecified
CPT/HCPCS: 99283; 99284; J7620